=== PATIENT | female | born 1955 | race Caucasian/White ===

== ENCOUNTER 2019-01-24 08:25 | Inpatient (IN) | payer MEDICARE, OTHER ==
[~2019-01-24] VITALS: Ht 165.1 cm; Wt 69.1 kg
[~2019-01-24 08:25] MED LIST: 00186-0370-20 IH; ALBUTEROL0.83 MG/ML IH; COZAAR 50MG50 MG/TAB PO; FOLIC ACID 11 MG/TA1 PO; HCTZ 25MG TAB25 MG PO; ISOPTIN SR180 M1 PO; LEXAPRO20 MG PO; MULTI VITAMINS1 TAB PO; PREDNISONE10 MG PO; PROVENTIL0.09 MG/A1 IH; THEO-24 30300 MG/CAP PO; THIAMINE 1100 MG/TAB PO; XANAX .25M0.25 MG/TA PO
[2019-01-24] MEDS ORDERED: ELIQUIS 5MG PO (08:56)
[2019-01-24] MEDS ORDERED: COZAAR 50MG50 MG/TAB PO (08:58)
[2019-01-24] MEDS ORDERED: PROTONIX 40MG T40 MG PO (09:00)
[2019-01-24] MEDS ORDERED: NATURE'S BLEND100 M2 PO (09:01)
[2019-01-24] MEDS ORDERED: FOLIC ACID0.4 MG PO (09:02)
[2019-01-24] MEDS ORDERED: CARDIZEM CD 24240 MG PO (09:03)
[2019-01-24 09:25] LABS: HEMATOCRIT 38.5 % (37.0-47.0); MEAN CELL VOLUME 94 fl (80.0-100.0); MEAN CORPUSCULAR HEMOGLOBIN 32 pg (27.0-31.0); MEAN CORPUSCULAR HGB CONC 34 g/dl (33.0-37.0); MEAN PLATELET VOLUME 8.8 fl (7.4-10.4); PLATELET COUNT 328 K/mm3 (130-400); REDCELL DISTRIBUTION WIDTH-CV 12.9 % (11.5-14.5)
[2019-01-24 09:27] LABS: PROTHROMBIN TIME 24.1 SECONDS (9.7-12.8)
[2019-01-24 09:34] LABS: ALANINE AMINOTRANSFERASE < 6 U/L (9-52); ALBUMIN 3.7 gm/dL (3.5-5.0); ALKALINE PHOSPHATASE 104 U/L (50-136); ANION GAP 11 mmol/L (7-16); AST,SGOT 23 U/L (15-37); BILIRUBIN,TOTAL 0.7 mg/dL (0.0-1.0); BLOOD UREA NITROGEN 7 mg/dL (7-17); CALCIUM 9.5 mg/dL (8.4-10.2); CARBON DIOXIDE 29 mmol/L (22-30); CHLORIDE 96 mmol/L (98-107); GLUCOSE 132 mg/dL (74-106); MAGNESIUM 1.7 mg/dL (1.6-2.3); POTASSIUM 4.1 mmol/L (3.4-5.0); SODIUM 136 mmol/L (137-145); TOTAL PROTEIN 7.7 gm/dL (6.4-8.2)
--- NOTE | 2019-01-24 10:00 | NUR ---
Admission assessment completed, alert/oriented, vital signs stable, denies pain or discomfort, health history obtained from patient and her , I have reviewed and reconciled her home meds / pharmacy/ allergies, heart RRR/distal pulses are palpable, placed on tele, EKG done / in sinus rythm at this time, notified Cardiology of her arrival
[2019-01-24 10:14] VITALS: BP 98/58; PULSE 101; TEMP 97.9
[2019-01-24 12:35] VITALS: BP 102/56; PULSE 89
[2019-01-24 16:28] VITALS: BP 99/55; PULSE 88; TEMP 98.7
[2019-01-24 20:07] VITALS: BP 106/51; PULSE 93; TEMP 98.7
--- NOTE | 2019-01-24 20:35 | NUR ---
Patient assessed at this time. Alert and oriented x 4, and able to make needs known. Denies having pain and discomfort. Peripheral IV to left forearm flushed. Site is without redness, warmth, swelling, and pain. Denies having SOB and dyspnea. LS CTA. Respirations even and unlabored. Denies having chest pain and discomfort. HRR. Telemetry in place. BSAx4. Abdomen soft and non-tender. No edema noted. Resting in bed watching TV at this time. Denies having any questions, needs or concerns. Call light is within reach.
[2019-01-24 23:59] VITALS: BP 106/62; PULSE 82; TEMP 98
[2019-01-25 03:32] VITALS: BP 106/56; PULSE 82; TEMP 97.9
--- NOTE | 2019-01-25 04:46 | NUR ---
Patient has been resting in bed with eyes closed most of the night. Denies having pain and discomfort. Voices no questions, needs, or concerns. Call light is within reach.
[2019-01-25 07:06] LABS: BASO # 0.1 (0.0-0.2); BASO % 0.6 % (0.0-2.0); EOS # 0.2 (0.0-0.7); EOS % 2.4 % (0-4.0); GRAN # 5.5 (1.4-6.5); GRAN % 68.2 % (42.2-75.2); HEMOGLOBIN 11.5 g/dl (12.5-16.0); LYMPH # 1.5 (1.2-3.4); MEAN CELL VOLUME 92 fl (80.0-100.0); MEAN CORPUSCULAR HEMOGLOBIN 31 pg (27.0-31.0); MEAN CORPUSCULAR HGB CONC 34 g/dl (33.0-37.0); MONO # 0.8 (0.1-0.6); MONO % 9.3 % (1.7-9.3); PLATELET COUNT 298 K/mm3 (130-400); RED BLOOD COUNT 3.67 M/mm3 (4.10-5.30)
--- NOTE | 2019-01-25 07:11 | NUR ---
Report given to day shift nurse.
[2019-01-25 07:30] VITALS: BP 106/63; PULSE 87; TEMP 97.4
[2019-01-25 07:30] LABS: CREATININE, serum 0.44 (0.52-1.25); MAGNESIUM 1.8 mg/dL (1.6-2.3)
[2019-01-25 07:46] LABS: HEMATOCRIT 33.9 % (37.0-47.0)
--- NOTE | 2019-01-25 08:50 | NUR ---
Assessment completed, alert/oriented, vital signs stable, denies any chest pain/ discomfort/ palpitations, EKG an tele show SR rated 80's-100 and a.m. Amidodraone dose given and we are on day #2, she denies any resp.difficulty or SOA/ lungs CTA, she is sititng up ordering breakfast and denies other needs, will continue to monitor
--- NOTE | 2019-01-25 10:30 | NUR ---
Initial visit; Patient thanked Director Data Processing for stopping and was receptive to Director Data Processing keeping her in Director Data Processing's prayers.
[2019-01-25 11:40] VITALS: BP 116/57; PULSE 81; TEMP 98.3
--- NOTE | 2019-01-25 15:30 | NUR ---
SW met with patient to discuss discharge planning. Patient lives independently at home with her . Patient's PCP was Dr Elliott but she sees another doctor in the same office. Patient is unsure of the doctors name. Patient obtains prescriptions from [facility]. Patient does not use any DME or home health services. Patient does have a DPOA-HC and SW requested a copy for the chart. SW does not anticipate any discharge needs.
[2019-01-25 16:06] VITALS: BP 100/56; PULSE 81; TEMP 98.1
[2019-01-25 18:58] VITALS: BP 104/54; PULSE 86; TEMP 98.5
--- NOTE | 2019-01-25 19:40 | NUR ---
Patient assessed at this time. Alert and oriented x 4, and able to make needs known. Denies having pain and discomfort. Peripheral IV to left forearm flushed. Site is without redness, warmth, swelling, and pain. LS CTA. Respirations even and unlabored. Denies SOB and dyspnea. Telemetry on. Denies chest pain, discomfort, and palpitations. Patient is normal sinus rhythm. BSAx4. Abdomen soft and non-tender. No edema. Voices no questions, needs, or concerns at this time. In recliner reading newspaper at this time. Call light is within reach.
[2019-01-25 23:14] VITALS: BP 123/56; PULSE 83; TEMP 98.1
[2019-01-26 03:10] VITALS: BP 110/69; PULSE 85; TEMP 98
--- NOTE | 2019-01-26 05:27 | NUR ---
Patient has denied pain, questions, needs, and concerns throughout this shift. Telemetry is in place, normal sinus.
--- NOTE | 2019-01-26 07:00 | NUR ---
Report received from LUNA Murrell. Pt in bed resting with no needs, will continue to monitor.
--- NOTE | 2019-01-26 07:08 | NUR ---
Report given to day shift nurse.
[2019-01-26 07:13] LABS: HEMOGLOBIN 11.7 g/dl (12.5-16.0); MEAN CELL VOLUME 95 fl (80.0-100.0); MEAN CORPUSCULAR HEMOGLOBIN 31 pg (27.0-31.0); MEAN CORPUSCULAR HGB CONC 33 g/dl (33.0-37.0); MEAN PLATELET VOLUME 9.2 fl (7.4-10.4); PLATELET COUNT 321 K/mm3 (130-400); RED BLOOD COUNT 3.79 M/mm3 (4.10-5.30); REDCELL DISTRIBUTION WIDTH-CV 13.2 % (11.5-14.5)
[2019-01-26 07:21] VITALS: BP 111/61; PULSE 85; TEMP 98.1
[2019-01-26 07:21] LABS: HEMATOCRIT 35.8 % (37.0-47.0)
[2019-01-26 07:24] LABS: CALCIUM 9.1 mg/dL (8.4-10.2); CREATININE, serum 0.54 (0.52-1.25); MAGNESIUM 1.9 mg/dL (1.6-2.3); POTASSIUM 3.8 mmol/L (3.4-5.0)
[2019-01-26 07:51] LABS: BAND 6 % (0-10); BASOPHIL 1 % (0-2); EOSINOPHIL 3 % (0-4); LYMPHOCYTE 22 % (20.0-51.0); NEUTROPHILS 59 % (42.0-75.2); PLATELET ESTIMATE NORMAL (NORMAL)
--- NOTE | 2019-01-26 08:26 | NUR ---
Assessment charted. pt has no pain, VSS, HR NSR. INT to LFA. Will be due for change today, pt agreeable. Resting quietly after showering, will continue to monitor.
[2019-01-26 11:08] VITALS: BP 100/52; PULSE 85; TEMP 98.1
[2019-01-26 16:53] VITALS: BP 106/64; PULSE 85; TEMP 98.6
--- NOTE | 2019-01-26 18:04 | NUR ---
Pt had uneventful day. ambulating as needed around floor. has had no pain or incidence of Afib. Will give bedside shift report to nightshift nurse who will resume care.
[2019-01-26 19:48] VITALS: BP 112/56; PULSE 83; TEMP 98.6
--- NOTE | 2019-01-26 21:23 | NUR ---
Resting in bed. Assessment complete. Lungs clear. Heart sounds normal. Bowels active x4. Pulses strong throughout. No edema noted. Denies pain at this time. Denies needs. Call light in reach.
[2019-01-26 23:21] VITALS: BP 113/58; PULSE 88; TEMP 98.1
--- NOTE | 2019-01-27 02:54 | NUR ---
Resting in bed. Denies needs. Call light in reach.
[2019-01-27 03:42] VITALS: BP 107/57; PULSE 84; TEMP 98
--- NOTE | 2019-01-27 05:35 | NUR ---
Patient had uneventful night. Resting in bed this AM.
--- NOTE | 2019-01-27 06:55 | NUR ---
Report given to LUNA Payne
[2019-01-27 07:26] LABS: BASO # 0.1 (0.0-0.2); BASO % 0.7 % (0.0-2.0); EOS # 0.2 (0.0-0.7); EOS % 2.2 % (0-4.0); GRAN # 5.1 (1.4-6.5); HEMOGLOBIN 11.3 g/dl (12.5-16.0); LYMPH # 1.3 (1.2-3.4); LYMPH % 18.1 % (20.0-51.0); MEAN CELL VOLUME 93 fl (80.0-100.0); MEAN CORPUSCULAR HEMOGLOBIN 31 pg (27.0-31.0); MEAN CORPUSCULAR HGB CONC 33 g/dl (33.0-37.0); MEAN PLATELET VOLUME 9.2 fl (7.4-10.4); MONO # 0.7 (0.1-0.6); MONO % 9.6 % (1.7-9.3); PLATELET COUNT 290 K/mm3 (130-400); RED BLOOD COUNT 3.64 M/mm3 (4.10-5.30); REDCELL DISTRIBUTION WIDTH-CV 13.1 % (11.5-14.5)
[2019-01-27 07:40] LABS: CREATININE, serum 0.5 (0.52-1.25); MAGNESIUM 1.9 mg/dL (1.6-2.3); POTASSIUM 3.8 mmol/L (3.4-5.0)
[2019-01-27 08:25] VITALS: BP 111/56; PULSE 82; TEMP 98
--- NOTE | 2019-01-27 09:29 | NUR ---
Assessment completed, alert/oriented, vital signs stable, denies pain or discomfort, heart RRR/ sinus rythm on tele and EKG, day #4 of Amiodarone initiation, she is sitting up eating breakfast, denies other needs
[2019-01-27 11:50] VITALS: BP 102/53; PULSE 79; TEMP 98.4
[2019-01-27 15:21] VITALS: BP 110/53; PULSE 87; TEMP 97.8
[2019-01-27 18:58] VITALS: BP 113/60; PULSE 80; TEMP 98
--- NOTE | 2019-01-27 20:22 | NUR ---
Resting in recliner. Assessment complete. Right lower lobe crackles otherwise clear. Heart sounds normal. Bowels active x4. Pulses strong throughout. No edema noted. INT right forearm without complications. Denies pain. Denies needs at this time. Call light in reach.
[2019-01-27 23:33] VITALS: BP 111/64; PULSE 81; TEMP 98.5
--- NOTE | 2019-01-28 01:00 | NUR ---
Resting in bed. Call light in reach.
[2019-01-28 03:59] VITALS: BP 110/60; PULSE 82; TEMP 98.3
--- NOTE | 2019-01-28 04:19 | NUR ---
Resting in bed. Call light in reach.
--- NOTE | 2019-01-28 06:03 | NUR ---
Patient had uneventful night. Resting in bed this AM. Denies needs. Call light in reach.
[2019-01-28 06:58] LABS: BASO # 0.1 (0.0-0.2); EOS # 0.2 (0.0-0.7); EOS % 2.4 % (0-4.0); GRAN # 4.6 (1.4-6.5); GRAN % 68.5 % (42.2-75.2); HEMOGLOBIN 11.1 g/dl (12.5-16.0); LYMPH # 1.3 (1.2-3.4); LYMPH % 19.5 % (20.0-51.0); MEAN CELL VOLUME 93 fl (80.0-100.0); MEAN CORPUSCULAR HEMOGLOBIN 31 pg (27.0-31.0); MEAN CORPUSCULAR HGB CONC 33 g/dl (33.0-37.0); MEAN PLATELET VOLUME 9.1 fl (7.4-10.4); MONO # 0.6 (0.1-0.6); MONO % 8.3 % (1.7-9.3); PLATELET COUNT 292 K/mm3 (130-400); RED BLOOD COUNT 3.59 M/mm3 (4.10-5.30); REDCELL DISTRIBUTION WIDTH-CV 12.9 % (11.5-14.5)
[2019-01-28 07:06] LABS: HEMATOCRIT 33.5 % (37.0-47.0)
--- NOTE | 2019-01-28 07:09 | NUR ---
Report given to LUNA Prince
[2019-01-28 07:15] LABS: CREATININE, serum 0.51 (0.52-1.25); MAGNESIUM 1.8 mg/dL (1.6-2.3); POTASSIUM 3.9 mmol/L (3.4-5.0)
[2019-01-28 07:42] VITALS: BP 108/56; PULSE 80; TEMP 98.2
--- NOTE | 2019-01-28 08:30 | NUR ---
Pt is awake and A/Ox4, sitting up in recliner. Pt denies pain or discomfort. Heart remains in NSR. Saline lock to right FA is free of complications. Pt denies any other needs.
[2019-01-28] MEDS ORDERED: PACERONE200 MG PO (09:36)
[2019-01-28] MEDS ORDERED: CARDIZEM CD 24240 MG PO (09:37)
[2019-01-28] MEDS ORDERED: ELIQUIS 5MG PO (09:37)
--- NOTE | 2019-01-28 10:14 | NUR ---
Pt was discharged home from hospital. All discharge instructions and paperwork was reviewed with pt who expressed understanding and had no questions. Saline lock removed, catheter tip intact. New prescriptions sent to pharm. Pt awaiting to be escorted out.
--- NOTE | 2019-01-28 11:19 | NUR ---
Patient will discharge home todat 01/28. SW presented IM to patient. She signed and did not want a copy.
--- NOTE | 2019-01-28 11:42 | NUR ---
Pt was escorted out of facility by staff
== END 2019-01-28 11:43 | disposition home or self-care (01) | DRG 310 ==
LOC: MEDICAL 08:25
PROVIDERS: ADMIT Internal Medicine Cardiovascular Disease
DX: I48.0 Paroxysmal atrial fibrillation (principal); J45.909 Unspecified asthma, uncomplicated; F41.9 Anxiety disorder, unspecified; F32.9 Major depressive disorder, single episode, unspecified; I10 Essential (primary) hypertension; F10.10 Alcohol abuse, uncomplicated; F17.210 Nicotine dependence, cigarettes, uncomplicated; Z88.2 Allergy status to sulfonamides; Z79.01 Long term (current) use of anticoagulants

== ENCOUNTER 2019-05-01 18:25 | Emergency (ER) | payer MEDICARE, OTHER ==
[~2019-05-01] VITALS: Ht 165.1 cm; Wt 75.0 kg
[~2019-05-01 18:25] MED LIST changes: +CARDIZEM CD 24240 MG PO; +ELIQUIS 5MG PO; +FOLIC ACID0.4 MG PO; +NATURE'S BLEND100 M2 PO; +PACERONE200 MG PO; +PROTONIX 40MG T40 MG PO
[2019-05-01 18:37] VITALS: TEMP 98.6
[2019-05-01 19:38] LABS: BASO % 0.7 % (0.0-2.0); EOS # 0.1 (0.0-0.7); EOS % 2.6 % (0-4.0); GRAN # 3.8 (1.4-6.5); GRAN % 70.8 % (42.2-75.2); HEMATOCRIT 38.2 % (37.0-47.0); HEMOGLOBIN 13.8 g/dl (12.5-16.0); LYMPH # 0.8 (1.2-3.4); LYMPH % 14.4 % (20.0-51.0); MEAN CELL VOLUME 90 fl (80.0-100.0); MEAN CORPUSCULAR HEMOGLOBIN 33 pg (27.0-31.0); MEAN CORPUSCULAR HGB CONC 36 g/dl (33.0-37.0); MEAN PLATELET VOLUME 9.3 fl (7.4-10.4); MONO # 0.6 (0.1-0.6); MONO % 11.3 % (1.7-9.3); PLATELET COUNT 144 K/mm3 (130-400); RED BLOOD COUNT 4.24 M/mm3 (4.10-5.30)
[2019-05-01 19:47] LABS: ALANINE AMINOTRANSFERASE 40 U/L (9-52); ALBUMIN 4.2 gm/dL (3.5-5.0); ALKALINE PHOSPHATASE 126 U/L (50-136); ANION GAP 10 mmol/L (7-16); AST,SGOT 70 U/L (15-37); BILIRUBIN,TOTAL 0.6 mg/dL (0.0-1.0); BLOOD UREA NITROGEN 10 mg/dL (7-17); CALCIUM 9.2 mg/dL (8.4-10.2); CARBON DIOXIDE 24 mmol/L (22-30); CHLORIDE 94 mmol/L (98-107); CREATININE, serum 0.49 (0.52-1.25); GLUCOSE 97 mg/dL (74-106); SODIUM 128 mmol/L (137-145); TOTAL PROTEIN 7.1 gm/dL (6.4-8.2)
[2019-05-01 19:58] LABS: TROPONIN-I < 0.012 ng/mL (0.000-0.035)
[2019-05-01] MEDS ORDERED: PREDNISONE20 MG PO (20:56)
[2019-05-01 21:15] VITALS: BP 128/60; PULSE 74
== END 2019-05-01 21:15 | disposition home or self-care (01) ==
LOC: COL.ER 18:25
PROVIDERS: Emergency Medicine
DX: J45.901 Unspecified asthma with (acute) exacerbation (principal); E87.1 Hypo-osmolality and hyponatremia; I48.91 Unspecified atrial fibrillation; Z87.891 Personal history of nicotine dependence
CPT/HCPCS: J7512

== ENCOUNTER → 2019-06-03 | Outpatient (CLI) | payer MEDICARE ==
[~2019-06-03] MED LIST changes: +PREDNISONE20 MG PO
== END ==
LOC: COL.RAD 05-31 11:00
DX: J98.6 Disorders of diaphragm (principal); R06.02 Shortness of breath

== ENCOUNTER 2020-02-28 23:27 | Inpatient (IN) | payer MEDICARE ==
[~2020-02-28] VITALS: Ht 167.6 cm; Wt 83.2 kg
[2020-02-29] VITALS (14 sets, daily range): BP systolic 84–135; BP diastolic 35–57; PULSE 70–84; TEMP 97.8–99.4
[2020-02-29] LABS: BASO % 0.7 % (0.0-2.0); EOS % 0.4 % (0-4.0); GRAN # 4.2 (1.4-6.5); GRAN % 75.7 % (42.2-75.2); HEMATOCRIT 37.4 % (37.0-47.0); HEMOGLOBIN 12.9 g/dl (12.5-16.0); LYMPH # 0.9 (1.2-3.4); LYMPH % 15.6 % (20.0-51.0); MEAN CELL VOLUME 102 fl (80.0-100.0); MEAN CORPUSCULAR HEMOGLOBIN 35 pg (27.0-31.0); MEAN CORPUSCULAR HGB CONC 35 g/dl (33.0-37.0); MEAN PLATELET VOLUME 9.4 fl (7.4-10.4); MONO # 0.4 (0.1-0.6); MONO % 7.2 % (1.7-9.3); PLATELET COUNT 195 K/mm3 (130-400); RED BLOOD COUNT 3.68 M/mm3 (4.10-5.30); REDCELL DISTRIBUTION WIDTH-CV 14.6 % (11.5-14.5)
[2020-02-29 00:07] LABS: INR 1.3 (0.8-3.0); PROTHROMBIN TIME 14.8 SECONDS (9.7-12.8)
[2020-02-29 00:09] LABS: PARTIAL THROMBOPLASTIN TIME 35.9 SECONDS (26.0-37.0)
[2020-02-29 00:10] LABS: ALBUMIN 4.2 gm/dL (3.5-5.0); BILIRUBIN,TOTAL 0.7 mg/dL (0.0-1.0); CALCIUM 8.4 mg/dL (8.4-10.2); CREATININE, serum 0.47 (0.52-1.25); POTASSIUM 4.5 mmol/L (3.4-5.0); TOTAL PROTEIN 7.4 gm/dL (6.4-8.2)
[2020-02-29] MEDS ORDERED: DOXYCYCLINE 10100 MG PO (00:24)
[2020-02-29] MEDS ORDERED: CORDARONE200 MG/TAB PO (02:31)
[2020-02-29] MEDS ORDERED: 00186-0370-20 IH (02:36)
--- NOTE | 2020-02-29 03:51 | NUR ---
Patient arrived to the unit via ED bed. Assisted patient to our surgical bed via slide board and 3 staff. Patient verbalizes pain at 8/10 to right hip. PRN Dilaudid given. Not effective. Dr. Phillips notified and ordered Morphine 1mg q4hr IV PRN. Patient stated her pain is now a 6/10 and "tolerable". Covarrubias catheter present and draining clear, yellow urine. IV to right wrist noted. Flushes with no issues. Ice to right hip. Patient awake and watching television at this time. 5 page, Med Rec, and infectious disease screening completed. Patient remains NPO. Will continue to monitor.
--- NOTE | 2020-02-29 06:56 | NUR ---
Lying in bed in supine position with eyes open. Rates pain in right knee 10/10 and describes as sharp throbbing pain that is constant. Immobilizer in place. Patient would like more pain medication.
--- NOTE | 2020-02-29 07:05 | NUR ---
Morphine administered as prescribed.
--- NOTE | 2020-02-29 08:20 | NUR ---
Reviewed consent for procedure tomorrow with the patient. Questions answered. Patient verbalizes understanding and signs consent. Consent placed on chart at this time.
--- NOTE | 2020-02-29 08:34 | NUR ---
Spoke with MERE Guzman, regarding patient pain, plan for surgery tomorrow, and diet. Orders placed. Patient rating pain 8/10 in right leg. Administer [place] as prescribed. Patient provided with water and explained that a breakfast tray will be coming for her to eat. Denies additional needs at this time.
--- NOTE | 2020-02-29 09:14 | NUR ---
Continues to rate pain 7/10 in right leg and patient would like additional Boz[place] as it is prescribed. Administered at this time. Patient lying in supine position in bed. Denies additional needs at this time.
--- NOTE | 2020-02-29 10:12 | NUR ---
Engineering Illustrator met with patient to discuss discharge planning. Patient lives in [place] with her , Moises (ph#[phone]) [address] sees Dr. Collier for primary care. Patient obtains medications from [facility] with no difficulties. Patient uses a four wheeled walker and reports she gets around fairly well. Patient reports she is normally independent with ALDS. Patient states her , Moises is her DPOA-HC although SW did not locate any Advance Directives in EMR. Per notes, plan is for patient to have surgery tomorrow. Patient states she would like to return home at discharge but states that she may be open to post acute rehab if needed. SW reviewed post acute rehab options including SNF, Inpatient Rehab, and [facility]. Patient states she will consider these options. Patient states if she does return home, she will need a hospital bed. SW will continue to follow.
--- NOTE | 2020-02-29 10:57 | NUR ---
Ice Handler attended clinical rounds with the team. Patient shared that she fell last night after her knee gave out. SW will continue to follow.
--- NOTE | 2020-02-29 11:11 | NUR ---
Rating pain 6/10 in right leg and would like pain medication. Dilaudid administered as prescribed.
--- NOTE | 2020-02-29 11:22 | NUR ---
First visit from the planning advisor. No needs right now.
--- NOTE | 2020-02-29 12:04 | NUR ---
Lying in bed with eyes open, rating pain in right leg 4/10. Patient updated that echo and chest xray would be performed. Patient denies additional needs at this time.
[2020-02-29 12:15] LABS: COLLECTION METHOD CLEAN CATCH
[2020-02-29 12:26] LABS: PH 6 (5-8); SQUAMOUS EPITHELIAL None Seen /hpf; URINE APPEARANCE Clear; URINE BACTERIA Occasional /hpf; URINE BILIRUBIN Negative (NEGATIVE); URINE BLOOD 2+ (NEGATIVE); URINE COLOR Yellow; URINE GLUCOSE Negative (NEGATIVE); URINE KETONE Negative (NEGATIVE); URINE LEUKOCYTE ESTERASE 2+ (NEGATIVE); URINE NITRATE Negative (NEGATIVE); URINE PROTEIN(semi-quant) Negative (NEGATIVE); URINE RBC 0-2 /hpf; URINE UROBILINOGEN Negative (NEGATIVE); URINE WBC 20-50 /hpf
--- NOTE | 2020-02-29 14:01 | NUR ---
Having increasing pain in right leg and would like pain medication. Will administer Morphine as prescribed. Patient lying in bed with eyes open. Immobilizer and ice to right leg.
--- NOTE | 2020-02-29 14:34 | NUR ---
Lying in bed with eyes closed. Respirations even and unlabored. No signs or symptoms of discomfort noted at this time.
--- NOTE | 2020-02-29 16:03 | NUR ---
Pain in right leg at 5/10, feels like it is increasing, and would like pain medication. Administer [place] as prescribed. Patient lying in bed watching TV. Immobilizer in place, ice to right femur. Denies additional needs at this time,
[2020-02-29 16:25] LABS: CALCIUM 8.3 mg/dL (8.4-10.2); CREATININE, serum 0.49 (0.52-1.25); POTASSIUM 4.1 mmol/L (3.4-5.0)
--- NOTE | 2020-02-29 21:00 | NUR ---
Pt assessment completed and documented. Pt A&Ox3. Pt resting in bed watching television. PRN morphine administered per orders for 8/10 right knee pain. States pain is a throbbing pain and increases with any type of movement. Immobilizer in place. IVF infusing per orders to right wrist IV without complications. Pt denies any other needs. Call light within reach. Bed alarm on.
[2020-03-01] VITALS (18 sets, daily range): BP systolic 100–139; BP diastolic 45–83; PULSE 68–78; TEMP 97.5–98.2
[2020-03-01 06:17] LABS: BASO % 0.2 % (0.0-2.0); GRAN # 5.4 (1.4-6.5); GRAN % 82.8 % (42.2-75.2); LYMPH # 0.5 (1.2-3.4); MEAN CELL VOLUME 104 fl (80.0-100.0); MEAN CORPUSCULAR HGB CONC 34 g/dl (33.0-37.0); MEAN PLATELET VOLUME 9.9 fl (7.4-10.4); MONO # 0.6 (0.1-0.6); MONO % 9.8 % (1.7-9.3); PLATELET COUNT 156 K/mm3 (130-400); RED BLOOD COUNT 3.03 M/mm3 (4.10-5.30); REDCELL DISTRIBUTION WIDTH-CV 14.9 % (11.5-14.5)
[2020-03-01 06:26] LABS: HEMATOCRIT 31.6 % (37.0-47.0); HEMOGLOBIN 10.8 g/dl (12.5-16.0); MEAN CORPUSCULAR HEMOGLOBIN 36 pg (27.0-31.0)
[2020-03-01 06:29] LABS: CALCIUM 8.3 mg/dL (8.4-10.2); CREATININE, serum 0.42 (0.52-1.25); MAGNESIUM 2.1 mg/dL (1.6-2.3); POTASSIUM 3.3 mmol/L (3.4-5.0)
--- NOTE | 2020-03-01 06:56 | NUR ---
Lying in bed with eyes open. Pain minimal at this time. Patient explains that she feels that her catheter is leaking. Catheter draining clear yellow urine. Chux pad noted to have some urine on the pad. Explain that she could be having bladder spasms that cause the urine to leak around the catheter. Chux pad changed at this time. Patient tolerates rolling not well. Bottom is red. Explain that we need to start rolling her on her sides to get her off her bottom, patient requests to wait until after her surgery. Patient denies any additional needs at this time.
--- NOTE | 2020-03-01 10:15 | NUR ---
Patient to surgery via bed at this time.
--- NOTE | 2020-03-01 13:22 | NUR ---
Patient to room via bed from PACU. Patient is alert and oriented but drowsy. Continues to have some cramping pains in right leg. Immobilizer in place to right leg, aquacel dressing under immobilizer. Patient able to move toes to bilat feet, lifts left leg, says that she does not want to lift the right leg. Cap refill to right toes <3 seconds, skin pink, pulses 2+. Patient denies needs at this time,.
--- NOTE | 2020-03-01 16:51 | NUR ---
Music Specialist followed up with patient about discharge plan. SW spoke with patient about sending other referrals as a second preference and patient would like SW to speak with her about other referrals. SW contacted patient's , Moises who confirmed their first preference would be [facility] but is open to other referrals being sent. JAN reviewed SNF and swing bed options. Moises advised he would like referrals sent to [facility] and [facility] and did not prefer one over the other. JAN contacted Johanna at [facility] and Cheikh at [facility] then faxed referrals. JAN contacted MERE Kasper about ordering COVID swab. JAN will continue to follow.
--- NOTE | 2020-03-01 20:23 | NUR ---
Resting in bed. Assessment complete. Bases bilaterally diminished otherwise clear. Heart sounds normal. Bowels active x4. Pulses present throughout. IV right wrist infusing without complications. Denies pain at this time. Denies needs. Call light in reach.
--- NOTE | 2020-03-02 00:09 | NUR ---
Reported 5/10 right leg pain and requested tylenol. Provided to patient. Denies other needs. call light in reach.
--- NOTE | 2020-03-02 01:45 | NUR ---
Resting in bed asleep. Call light in reach.
[2020-03-02 04:00] VITALS: BP 113/50; PULSE 67; TEMP 98.1
[2020-03-02 06:00] LABS: CALCIUM 8.3 mg/dL (8.4-10.2); CREATININE, serum 0.42 (0.52-1.25)
[2020-03-02 06:10] LABS: GRAN % 89.8 % (42.2-75.2); HEMATOCRIT 29.2 % (37.0-47.0); HEMOGLOBIN 9.9 g/dl (12.5-16.0); LYMPH # 0.2 (1.2-3.4); LYMPH % 2.6 % (20.0-51.0); MEAN CELL VOLUME 105 fl (80.0-100.0); MEAN CORPUSCULAR HEMOGLOBIN 36 pg (27.0-31.0); MEAN CORPUSCULAR HGB CONC 34 g/dl (33.0-37.0); MEAN PLATELET VOLUME 10.3 fl (7.4-10.4); MONO # 0.6 (0.1-0.6); MONO % 7.2 % (1.7-9.3); PLATELET COUNT 149 K/mm3 (130-400); RED BLOOD COUNT 2.77 M/mm3 (4.10-5.30); REDCELL DISTRIBUTION WIDTH-CV 14.7 % (11.5-14.5)
--- NOTE | 2020-03-02 06:20 | NUR ---
Patient required x1 dose of tylenol for pain control throughout night. Otherwise uneventful night. Resting in bed this AM. Call light in reach.
--- NOTE | 2020-03-02 06:57 | NUR ---
Report given to LUNA Carballo
[2020-03-02 07:38] VITALS: BP 123/53; PULSE 84; TEMP 98.5
--- NOTE | 2020-03-02 08:00 | NUR ---
Patient in bed resting. Alert and oriented x 3. Assessment complete. Brace to RLE, ICE to RLE. Dewayne hose and SCD to LLE. Fluids infusing per orders to RW IV. Covarrubias to dependent drainage with clear yellow urine in bag. Denies pain at this time. Denies further needs at this time.
--- NOTE | 2020-03-02 09:25 | NUR ---
Patient up to chirag with Pt.
--- NOTE | 2020-03-02 10:04 | NUR ---
Patient sitting up in recliner, Denies pain after working with therapy. Would like bed bath later today. Denies further needs at this time.
--- NOTE | 2020-03-02 10:09 | NUR ---
Johanna from [facility] reports they can accept the patient. Rubi, [facility] Director states they can accept the patient. The patient and 's first choice is [facility]. Credit Analyst contacted the patient's , Don to provide an update. Will continue to monitor.
[2020-03-02 11:50] VITALS: BP 116/49; PULSE 76; TEMP 98
--- NOTE | 2020-03-02 15:42 | NUR ---
Patient back to bed. Denies pain at this time. Denies further needs at this time.
[2020-03-02 16:31] VITALS: BP 116/51; PULSE 82; TEMP 98.7
--- NOTE | 2020-03-02 18:32 | NUR ---
Patient has done well throughout the day, minimal needs. Denies pain throughout the day, Covarrubias discontinued per orders. Denies further needs at this time. Will report off to electrical mechanic.
[2020-03-02 19:33] VITALS: BP 100/48; PULSE 74; TEMP 98.5
[2020-03-02 20:25] VITALS: BP 119/42
--- NOTE | 2020-03-02 20:40 | NUR ---
Resting in bed. Assessment complete. Lungs clear. Heart sounds normal. Bowels active x4. Pulses present throughout. No edema noted. INT right wrist without complications. Denies needs. Denies pain. Call light in reach.
--- NOTE | 2020-03-02 22:30 | NUR ---
Patient urinated approx 100 ml into bedpan. Denies needs. Call light in reach.
[2020-03-03 00:32] VITALS: BP 107/47; PULSE 78; TEMP 97.7
--- NOTE | 2020-03-03 00:36 | NUR ---
Reports 3/10 right leg pain. Provided with PRN tylenol at this time
[2020-03-03 04:33] VITALS: BP 114/52; PULSE 72; TEMP 98
--- NOTE | 2020-03-03 06:10 | NUR ---
Patient given x1 dose of tylenol during night for pain control. Patient used bedpan and had episodes of incontinence during night. This AM patient used bedpan and refused to allow staff to change bedsheets until later once patient gets up. Clean pad placed under patient at this time. Otherwise uneventful night. Resting in bed this Am. Will pass on to next shift needs linens changed once out of bed.
--- NOTE | 2020-03-03 07:02 | NUR ---
Report given to LUNA Carballo
--- NOTE | 2020-03-03 08:00 | NUR ---
Patient in bed resting. Alert and oriented x 3. Assessment complete. Denies pain at this time. RLQ with brace. Denies further needs at this time.
[2020-03-03 08:06] LABS: BASO % 0.1 % (0.0-2.0); GRAN # 7.3 (1.4-6.5); GRAN % 84.3 % (42.2-75.2); HEMOGLOBIN 10.1 g/dl (12.5-16.0); LYMPH # 0.5 (1.2-3.4); LYMPH % 5.9 % (20.0-51.0); MEAN CELL VOLUME 107 fl (80.0-100.0); MEAN CORPUSCULAR HEMOGLOBIN 36 pg (27.0-31.0); MEAN CORPUSCULAR HGB CONC 33 g/dl (33.0-37.0); MEAN PLATELET VOLUME 10.4 fl (7.4-10.4); MONO # 0.8 (0.1-0.6); MONO % 9.4 % (1.7-9.3); PLATELET COUNT 160 K/mm3 (130-400); RED BLOOD COUNT 2.84 M/mm3 (4.10-5.30); REDCELL DISTRIBUTION WIDTH-CV 15.1 % (11.5-14.5)
[2020-03-03 08:09] VITALS: BP 135/56; PULSE 79; TEMP 98.2
[2020-03-03 08:10] LABS: CALCIUM 8.7 mg/dL (8.4-10.2); CREATININE, serum 0.46 (0.52-1.25); POTASSIUM 3.7 mmol/L (3.4-5.0)
[2020-03-03 08:15] LABS: HEMATOCRIT 30.4 % (37.0-47.0)
--- NOTE | 2020-03-03 09:54 | NUR ---
JAN was informed by nurse Jackson that patient would be transfering to [facility] some time today. SW called Don to provide an update on transition. SW will continue to follow.
--- NOTE | 2020-03-03 10:45 | NUR ---
Educated patient on potassium protocol. Sitting up in recliner, no further needs at this time.
[2020-03-03] MEDS ORDERED: NORCO 325 MG-51 TAB PO (11:28)
[2020-03-03] MEDS ORDERED: OMNICEF 300MG300 MG PO (11:28)
[2020-03-03] MEDS ORDERED: ULTRAM 50MG TAB50 MG PO (11:28)
[2020-03-03] MEDS ORDERED: TYLENOL 325MG325 MG PO (11:28)
[2020-03-03 16:36] VITALS: BP 142/54; PULSE 94; TEMP 98.8
--- NOTE | 2020-03-03 17:33 | NUR ---
Patient transfering to [facility] room 340 by bed. Bed bath provided today, patient voluntarily incontinent of urine. Eduated patient on calling when needing to void throughout the day. No further needs at this time.
[2020-03-03] MEDS ORDERED: PERFOROMIS20 MCG/2 M IH (20:15)
[2020-03-03] MEDS ORDERED: PULMICORT0.5 MG/2 M IH (20:16)
[2020-03-03] MEDS ORDERED: IPRATROPIUM BROM3 M1 IH ×2 (20:18→20:20)
== END 2020-03-03 17:00 | DRG 481 ==
LOC: COL.ER 23:27 → SURG 02-29 00:58
PROVIDERS: Emergency Medicine; Internal Medicine; Orthopaedic Surgery; Physician Assistant; ADMIT Student in an Organized Health Care Education/Training Program
PROC: 0QSB04Z Reposition Right Lower Femur with Internal Fixation Device, Open Approach (ICD-10-PCS; principal; 2020-03-01 10:45)
DX: S72.451A Displaced supracondylar fracture without intracondylar extension of lower end of right femur, initial encounter for closed fracture (principal); E87.1 Hypo-osmolality and hyponatremia; D62 Acute posthemorrhagic anemia; N39.0 Urinary tract infection, site not specified; I48.91 Unspecified atrial fibrillation; I10 Essential (primary) hypertension; F41.9 Anxiety disorder, unspecified; F10.10 Alcohol abuse, uncomplicated; F32.9 Major depressive disorder, single episode, unspecified; J44.9 Chronic obstructive pulmonary disease, unspecified; Z79.01 Long term (current) use of anticoagulants; Z87.891 Personal history of nicotine dependence; Z88.2 Allergy status to sulfonamides
CPT/HCPCS: 99222-AI; 99232-AI; 99239; A9284; C1713; C1776; J0690; J0696; J1100; J1170; J2250; J2270; J2405; J2704; J3010; J3480; J7030; J7512

== ENCOUNTER 2020-03-03 16:19 | Inpatient (IN) | payer MEDICARE ==
[~2020-03-03] VITALS: Ht 167.6 cm; Wt 76.0 kg
[~2020-03-03 16:19] MED LIST changes: +CORDARONE200 MG/TAB PO; +DOXYCYCLINE 10100 MG PO; +NORCO 325 MG-51 TAB PO; +OMNICEF 300MG300 MG PO; +TYLENOL 325MG325 MG PO; +ULTRAM 50MG TAB50 MG PO
--- NOTE | 2020-03-03 17:00 | NUR ---
Patient oriented to room, notified Dr. Cadena of patient transfer. Denies further needs at this time.
--- NOTE | 2020-03-03 18:36 | NUR ---
Patient doing well this afternoon. Minimal needs. Will report off to operations supervisor 2nd shift.
--- NOTE | 2020-03-03 19:00 | NUR ---
PT RESTING IN BED. HERE VISITING. REVIEWED [facility] ROUTINE AND SAFETY PRECAUTIONS. BOTH VERBALIZED UNDERSTANDING. ASSESSMENT COMPLETED. PT DENIES NEED FOR PAIN MEDICATION AT THIS TIME. INT TO RT HAND DC'D. GILMAR HOSE OFF. SCD'S ON. PT WITH UTI SECONDARY TO INCONTINENCE. WEARS DIAPER. INCONT AT THIS TIME. CHANGED. SEE SKIN ASSESSMENT. FEET ELEVATED ON PILLOWS. ICE PACK TO RT THIGH. CALL LIGHT IN REACH. BED ALARM SET.
[2020-03-03 20:00] VITALS: BP 142/54; PULSE 94; TEMP 98.8
[2020-03-03] MEDS ORDERED: PERFOROMIS20 MCG/2 M IH (20:15)
[2020-03-03] MEDS ORDERED: PULMICORT0.5 MG/2 M IH (20:16)
[2020-03-03] MEDS ORDERED: IPRATROPIUM BROM3 M1 IH ×2 (20:18→20:20)
[2020-03-04 05:15] VITALS: BP 133/55; PULSE 75; TEMP 97.6
--- NOTE | 2020-03-04 10:38 | NUR ---
PATIENT RESTING IN BED AT BEDSIDE SHIFT REPORT. PATIENT DENIED PAIN AT THAT TIME. WAS GIVEN PRN TYLENOL AT 0900 AND MOVED TO CHAIR AT 0930. PATIENT TOLERATED WELL. HEELS ARE FLOATING AND PATIENT'S BRIEF WAS CHANGED AT THIS TIME WELL A BED LINEN CHANGE.
--- NOTE | 2020-03-04 11:55 | NUR ---
PATIENT'S HOME MEDICATIONS WERE BROUGHT UP FROM PHARMACY AND PLACED IN MED ROOM. WILL TAKE THEM HOME WHEN HE COMES TODAY. AN EXTERNAL CATHETER WAS PLACED AT 11:[address] HOLT FOR INCONTINENCE.
--- NOTE | 2020-03-04 15:08 | NUR ---
SW met with patient at her bedside to discuss discharge planning. Patient was just assigned to [facility]. Patient resides in [facility] with her Lisa [phone] as care support and EMR. Patient indicated that she was independant of ADL's, and that she utilizes a rolling walker and a toliet rise. Patient reported that her PCP is Dr. Collier, and that she has an appointment July. Patient reported that she gets her medications from [facility] in [facility] with no concerns. Patient did discuss HHS with patient, as she wishes to go home. Patient did become teary eyed at the thought of going to a retirement. SW validated patients concerns, and indicated that Sw would continue to follow her care processes. patient seemed to be okay with this.
[2020-03-04 18:10] VITALS: BP 124/52; PULSE 82; TEMP 97.8
--- NOTE | 2020-03-04 18:58 | NUR ---
PATIENT TOLERATING EXTERNAL CATHETER WELL. SOME PRN TYLENOL GIVEN AGAIN THIS AFTERNOON. ABD PADS TO UNDERSIDE OF IMMOBILIZER FOR IRRITAION. PATIENT RESTING IN BED AT BEDSIDE SHIFT REPORT. BED IN LOW, BED ALARM ON, AND CALL LIGHT WITHIN REACH.
--- NOTE | 2020-03-04 21:00 | NUR ---
PT RESTING IN BED. A&OX4. DENIES ANY NEED FOR PAIN MED. PT TAKING QUITE A BIT OF H20 IN. ENC TO SLOW DOWN H20. USING PUREWICK FOR URINARY INCONTINENCE. PT REPORTS URGENCY BUT NO DYSURIA. URINE CLEAR YELLOW. ENC SHIFT WEIGHT OFF BUTTOCKS FOR WOUND HEALING. PLACED SCD TO LT LEG. PILLOW TO FLOAT RT FOOT. CALL LIGHT IN REACH. PT RELATED SHE WANTED TO KEEP SYMBICORT IN BEDSIDE TABLE. AGREED TO KEEP AT COMPUTER KEYBOARD TO DOCUMENT DOSEGES GIVEN. CALL LIGHT IN REACH. BED ALARM SET.
--- NOTE | 2020-03-05 02:17 | NUR ---
PT C/O DISCOMFORT FROM IMMOBILIZER AT DISTAL END. REPOSITIONED IMMOBILIZER. GAVE TYLENOL PER REQUEST. CHANGED PUREWICK. PADS WETS UNDERNEATH PT. COCCYX DRSG REMOVED -WET. ALLOWED TO AIR. PERICARE DONE.
[2020-03-05 05:30] VITALS: BP 130/50; PULSE 70; TEMP 98.9
--- NOTE | 2020-03-05 09:10 | NUR ---
Initial visit; Patient thanked Engineering Programmer for looking in on him and offering God's blessings and for keeping her in Engineering Programmer's prayers.
--- NOTE | 2020-03-05 09:26 | NUR ---
PATIENT RESTING IN BED AT BEDSIDE SHIFT REPORT. EXPRESSED ANXIETY ABOUT UPCOMING THERAPY. TRIED TO ELEVIATE WORRIES AND GOT PRN TYLENOL ON BOARD THIS AM. PATIENT'S BRIEF WAS CHANGED AND WAS HELPED TO GET DRESSED FOR THERAPY.
--- NOTE | 2020-03-05 15:46 | NUR ---
Furniture Finisher Apprentice met with patient to follow up from the weekend. Patient expressed she was relieved she could go to Inpatient Rehab instead of SNF. SW will continue to follow.
[2020-03-05 16:30] VITALS: BP 113/45; PULSE 73; TEMP 98.7
--- NOTE | 2020-03-05 19:12 | NUR ---
PATIENT MANAGING PAIN WELL TODAY. ALLEVYN DRESSING IN PLACE ON [place] TO STAGE II PRESSURE INJURY. PURWICK IN PLACE AND DRAINING WELL. PATIENT C/O TIGHTNESS BUT NO PAIN. IS IN BED AT BEDSIDE SHIFT REPORT. CALL LIGHT WITHIN REACH, BED ALARM ON, BED IN LOW.
[2020-03-06 05:32] VITALS: BP 110/51; PULSE 64; TEMP 98
--- NOTE | 2020-03-06 07:03 | NUR ---
CHANGE OF SHIFT REPORT GIVEN TO DAY SHIFT NURSEDALILA. BED ALARM ON.
--- NOTE | 2020-03-06 08:54 | NUR ---
Assessment completed, alert/oriented, vital signs stable, reports pain is controlled at this time and rates 2/10, Gave ultram for pre-treatent of PT that will start at 0900, heart RRR/ hx of a.fib but regular at this time, distal pulses are palpable, lungs CTA/ no resp.difficulty noted, she has eaten breakfast and has taken a.m. meds, denies other needs at this time
[2020-03-06 16:35] VITALS: BP 117/62; PULSE 74; TEMP 98.3
--- NOTE | 2020-03-06 20:00 | NUR ---
DECREASED ROM/STRENGTH TO RLE D/T R FEMUR ORIF W/KNEE IMMOBILIZER IN PLACE AND R KNEE DISCOMFORT. REPORTS DISCOMFORT IS MORE "STIFFNESS" DISCOMFORT. DENIES NUMBNESS/TINGLING TO EXTREMITIES. BED ALARM ON.
--- NOTE | 2020-03-07 00:34 | NUR ---
PATIENT SLEEPING, DOES NOT WAKE WHEN ROOM IS ENTERED BY STAFF. BREATHING NONLABORED AND EVEN. BED ALARM ON.
[2020-03-07 04:54] VITALS: BP 104/49; PULSE 64; TEMP 97.9
--- NOTE | 2020-03-07 07:26 | NUR ---
CHANGE OF SHIFT REPORT GIVEN TO DAY SHIFT NURSECALISTA. BED ALARM ON.
[2020-03-07 07:49] VITALS: BP 112/47; PULSE 72
[2020-03-07 08:11] LABS: BASO % 0.5 % (0.0-2.0); EOS # 0.2 (0.0-0.7); EOS % 3.1 % (0-4.0); GRAN # 4.5 (1.4-6.5); GRAN % 69.8 % (42.2-75.2); HEMOGLOBIN 10.3 g/dl (12.5-16.0); LYMPH # 0.8 (1.2-3.4); LYMPH % 12.6 % (20.0-51.0); MEAN CELL VOLUME 106 fl (80.0-100.0); MEAN CORPUSCULAR HEMOGLOBIN 36 pg (27.0-31.0); MEAN CORPUSCULAR HGB CONC 34 g/dl (33.0-37.0); MEAN PLATELET VOLUME 9.6 fl (7.4-10.4); MONO # 0.9 (0.1-0.6); MONO % 13.4 % (1.7-9.3); PLATELET COUNT 219 K/mm3 (130-400); RED BLOOD COUNT 2.88 M/mm3 (4.10-5.30); REDCELL DISTRIBUTION WIDTH-CV 14.3 % (11.5-14.5)
[2020-03-07 08:18] LABS: HEMATOCRIT 30.5 % (37.0-47.0)
[2020-03-07 08:30] LABS: CALCIUM 8.7 mg/dL (8.4-10.2); CREATININE, serum 0.48 (0.52-1.25); MAGNESIUM 2.2 mg/dL (1.6-2.3); POTASSIUM 3.7 mmol/L (3.4-5.0)
--- NOTE | 2020-03-07 09:13 | NUR ---
Follow-up visit; Patient thanked Front End Ui Developer for looking in on her this morning and offering God's blessings.
--- NOTE | 2020-03-07 15:06 | NUR ---
Patient resting in bed, call light in reach and bed alarm set. Patient attended all therapies this morning. Given prn pain meds and ice pack to help with right lower extremity pain. Stage II open sore to right buttocks continues to heal. Stage I to Left buttocks is red. Will continue to monitor.
--- NOTE | 2020-03-07 16:45 | NUR ---
Computer Bookkeeper met with patient to review and provide copy of team conference notes. Discharge date is not set at this time and patient will be reevaluated in a week. SW advised that Home Health is being recommended and patient is in agreement. SW reviewed DME needs with patient who states she will need a hospital bed set up at home and would like to look into renting one. SW attempted to contact patient's and left him a message. SW will continue to follow.
[2020-03-07 17:17] VITALS: BP 107/44; PULSE 72; TEMP 98.2
--- NOTE | 2020-03-07 18:07 | NUR ---
Patient resting in bed, visiting on her phone, call light in reach and bed alarm set. Patient denies any questions at this time. Pain managed with prn pain meds and have been effective. Patient reporting that therapy worked her left leg a lot today, causing more pain. Observed dressing to right leg and there was no drainage observed. Will continue to monitor.
--- NOTE | 2020-03-08 03:21 | NUR ---
PT SLEEPING. NO DISTRESS.
[2020-03-08 05:22] VITALS: BP 97/45; PULSE 65; TEMP 98.3
[2020-03-08 07:17] VITALS: BP 114/49; PULSE 65
--- NOTE | 2020-03-08 07:37 | NUR ---
Patient resting in bed, call light in reach and bed alarm set. Patient tolerating diet well. Reports pain of 5/10 and given Ultram this morning. Patient denies questions at this time.
--- NOTE | 2020-03-08 15:03 | NUR ---
Admission QIM scores were reviewed by the team. Code of 3 chosen for rolling left to right was determined by team discussion to be the most usual performance for this patient during the assessment period. Code of 2 chosen for lying to sitting on side of bed was determined by team discussion to be the most usual performance for this patient during the assessment period. Code of 1 for sit to stand was determined by team discussion to be the most usual performance for this patient during the assessment period. Code of 3 for chair/bed to chair transfers was determined by team discussion to be the most usual performance for this patient during the assessment period.--Rubi Artis,
--- NOTE | 2020-03-08 16:44 | NUR ---
College Administrator spoke with patient's , Moises about discharge planning and DME needs. Moises inquired about hospital bed pricing. JAN advised that Medicare may not cover hospital bed but that SW would follow up. Moises states that he and patient live at [facility] on the 3rd floor. JAN scheduled family meeting for Thursday, 03/14 @ 2590. JAN provided meeting date/time to Rubi [facility] Director. JAN followed up with patient and provided Medicare.gov list of Home Health agencies. JAN contacted Faith awad [facility] who will fax Medicare requirements for hospital bed. Out of pocket cost to rent a hospital bed is $236.25 per month. JAN will continue to follow.
[2020-03-08 17:26] VITALS: BP 117/53; PULSE 71; TEMP 98.1
--- NOTE | 2020-03-08 19:49 | NUR ---
Patient attended all therapies today. Tolerated diet well. OT gave patient some lambs wool to place under her immobilizer to prevent any pressure sores. Dressing is due to be changed on 03/09 then daily after that. OT suggested that patient to the slide transfer during the day to the bedside commode and not use the Periwick until at HS. Night nurse will communicate this to the patient this evening.
--- NOTE | 2020-03-08 21:00 | NUR ---
PT RESTING IN BED. PAIN UNDERCONTROL AT THIS TIME. IMMOBILIZER IN PLACE- SHEEP SKIN PLACED FOR DISCOMFORT OF IMMOBILIZER.- FEELS BETTER. USING PUREWICK EXTERNAL CATH- URINE CLEAR YELLOW..
[2020-03-09 05:45] VITALS: BP 114/54; PULSE 67; TEMP 97.8
--- NOTE | 2020-03-09 07:30 | NUR ---
Patient laying in bed, A&Ox3. VSS. Requested pain medication r/t upcoming therapy. Right knee in immobilizer and elevated on pillow. Periwick to suction, clear yellow urine. Nurse informed patient that we will removed the periwick and the patient needs to use the BSC during the day. Patient verbalized an understanding. No further needs expressed from the patient. Call light within reach. Bed alarm on
--- NOTE | 2020-03-09 10:00 | NUR ---
Dressing changed to right knee. Removed aquacell and placed airstrip. Incision edges well approximated, CDI. Knee immobilzer put back on. Patient tolerated well. Call light within reach
--- NOTE | 2020-03-09 16:14 | NUR ---
Women'S Apparel Salesperson followed up with patient before the weekend. SW spoke with patient again about Home Health and patient states her first preference is [facility] and second preference is [facility]. JAN contacted Monica at [facility] and faxed referral. JAN will continue to follow.
[2020-03-09 17:46] VITALS: BP 114/44; PULSE 69; TEMP 98.3
[2020-03-10 05:48] VITALS: BP 125/44; PULSE 66; TEMP 67.6
--- NOTE | 2020-03-10 05:56 | NUR ---
RESTING QUIETLY/SLEEPING. PT MEDICATED FOR PAIN Q 3-4 HOURS FOR LOWER EXTREMITY DISCOMFORT. NO N/V.
--- NOTE | 2020-03-10 15:38 | NUR ---
Patient resting in bed, call light in reach, bed alarm set and at her side. Patient having pain to Rt leg and given prn pain meds and they have been effective. Patient attended Group Therapy today. Denies questions at this time.
[2020-03-10 16:50] VITALS: BP 124/52; PULSE 65; TEMP 98.3
--- NOTE | 2020-03-10 19:39 | NUR ---
PATIENT RESTING IN BED DURING CHANGE OF SHIFT REPORT FROM DAY SHIFT NURSE. BED ALARM ON.
--- NOTE | 2020-03-10 23:15 | NUR ---
DECREASED ROM/STRENGTH TO RLE DUE TO SURGERY, CONTINUED NON WT BEARING TO RLE WHEN UP OUT OF BED. BED ALARM ON.
[2020-03-11 06:08] VITALS: BP 121/51; PULSE 65; TEMP 98
--- NOTE | 2020-03-11 06:50 | NUR ---
CHANGE OF SHIFT REPORT GIVEN TO DAY SHIFT NURSESUE. BED ALARM ON.
--- NOTE | 2020-03-11 07:13 | NUR ---
PATIENT RESTING IN BED AT BEDSIDE SHIFT REPORT. PATIENT RELAYED SHE WANTS A BATH AND TO SIT UP IN THE CHAIR TODAY STARTING AT 10. BED IN LOW, CALL LIGHT WITHIN REACH, BED ALARM ON.
--- NOTE | 2020-03-11 17:52 | NUR ---
PATIENT WAS A SET UP FOR A BED BATH TODAY, CHANGED CLOTHES AND GOT UP INTO WHEELCHAIR FOR PART OF THE DAY. PATIENT C/O SORENESS MORE THEN PAIN TODAY, WAS ENCOURAGED TO UTILIZE BEDSIDE COMMODE BUT HAS BEEN REFUSING AND USING PERIWICK AND BEDPAN TODAY. PATIENT FLOATING HEELS AND RESTING IN BED EATING DINNER AT THIS TIME.
[2020-03-11 18:24] VITALS: BP 119/51; PULSE 69; TEMP 97.3
--- NOTE | 2020-03-11 19:05 | NUR ---
RECEIVED CHANGE OF SHIFT REPORT FROM DAY SHIFT NURSE, BED ALARM ON. PATIENT REPORT SOME NAUSEA, OFFERED CRACKERS FOR SLIGHT NAUSEA THAT PATIENT DID NOT ANSWER AT TIME OF REPORT.
--- NOTE | 2020-03-11 19:33 | NUR ---
PATIENT REQUESTED AND GIVEN PAIN MEDS, SEE eMAR AND AGREED TO TAKE CRACKERS FOR CONTINUED C/O OF SLIGHT NAUSEA. NO OTHER NEEDS REPORTED. BED ALARM ON.
--- NOTE | 2020-03-11 20:00 | NUR ---
DECREASED ROM/STRENGTH TO RLE D/T SURGERY AND LOCKED KNEE BRACE. PATIENT STATES FEELS COMFORTABLE USING SLIDE BOARD FOR OUT OF BED TRANSFERS, FOR NIGHT TIME USES PURE WICK FOR VOIDING AND BED RAINEY FOR BM, REPORT TURNS FROM SIDE TO SIDE WITH NO PROBLEMS CURRENTLY. DENIES NUMBNESS/TINGLING TO EXTREMITIES AT THIS TIME. REPORTS SOME NAUSEA, DENIES NEED FOR MEDICATION FOR NAUSEA, TOLERATING SIPS OF SPRITE AND AGREEABLE TO FEW SALTINE CRACKERS TO EAT AT THIS TIME. BED ALARM ON.
[2020-03-12 04:51] VITALS: BP 120/48; PULSE 62; TEMP 97.6
--- NOTE | 2020-03-12 07:27 | NUR ---
PROTONIX PILL FELL ONTO FLOOR, RETRIEVED ANOTHER PROTONIX PILL FROM MED STATION TO ADMINISTER TO PATIENT. CHANGE OF SHIFT REPORT GIVEN TO DAY SHIFT NURSESUE. BED ALARM ON.
--- NOTE | 2020-03-12 09:35 | NUR ---
PATIENT SLEEPING IN BED AT BEDSIDE SHIFT REPORT. BED IN LOW, CALL LIGHT WITHIN REACH, BED ALARM ON.
--- NOTE | 2020-03-12 10:29 | NUR ---
Follow-up visit; Patient thanked Steeler for checking in on her and keeping her in Steeler's thoughts and prayers.
--- NOTE | 2020-03-12 15:32 | NUR ---
Monica, at [facility], reports that they are able to accept the patient for services. SW to inform the patient and her .
[2020-03-12 15:38] VITALS: BP 120/52; PULSE 67; TEMP 98.1
--- NOTE | 2020-03-12 17:47 | NUR ---
PATIENT RESTING IN BED, PATIENT CONTINUES TO STATE SHE DOESN'T HAVE MUCH OF AN APPETITE AND DOESN'T EAT MUCH FOR MEALS. PATIENT OFFERED OTHER OPTIONS AND SNACKS OFFERED AND REFUSED. PATIENT'S PAIN WAS MANAGED WELL TODAY AND PATIENT WORKED WELL WITH THERAPY. BED IN LOW, CALL LIGHT AND GRABBER IN REACH, BED ALARM ON.
--- NOTE | 2020-03-12 20:00 | NUR ---
DECREASED ROM/STRENGTH TO RLE D/T SURGERY AND LOCKED KNEE BRACE. WEIGHT BEARING STATUS TO RLE IS NO WEIGHT BEARING. PATIENT UP TO BSC DURING DAY USING SLIDE BOARD, AT NIGHT PATIENT MAINTAINS BEDREST DUE TO FATIGUE FROM FULL DAY OF THERAPY AND USES BED RAINEY FOR BMS. DENIES CHEST PAIN, SHORTNESS OF BREATH. DENIES NUMBNESS/TINGLING TO EXTREMITIES AT THIS TIME. BED ALARM ON WHEN IN BED.
--- NOTE | 2020-03-12 23:58 | NUR ---
PATIENT RESTING IN BED DURING CHANGE OF SHIFT REPORT RECEIVED FROM DAY SHIFT NURSE.
[2020-03-13 05:43] VITALS: BP 124/43; PULSE 66; TEMP 98.1
--- NOTE | 2020-03-13 07:27 | NUR ---
CHANGE OF SHIFT REPORT GIVEN TO DAY SHIFT NURSECALISTA. BED ALARM ON.
--- NOTE | 2020-03-13 11:06 | NUR ---
Patient attending group therapy at this time. Patient reporting pain to rt femur and given prn pain meds with good effect. Will continue to monitor.
--- NOTE | 2020-03-13 12:58 | NUR ---
Patient resting in wheelchair awaiting thearpy for this afternoon. Patient tolerated meal well at lunch. Patient given prn pain meds to help her with afternoon therapy. Will continue to monitor.
--- NOTE | 2020-03-13 14:05 | NUR ---
JAN met with the patient to introduce oneself and to review equipment needs. The patient confirms that she needs the FWW, wheelchair, sliding board, and is interested in a hospital bed. JAN informed her of the cost of the hospital bed. The patient is concerned with having to pay up front for the hospital bed and having all equipment needed by time of d/c. JAN contacted and faxed the equipment order to Megan at [facility]. Megan reports that they would require a months payment up front for the hospital bed. JAN contacted and updated the patient's , Moises, on the above information. Moises reports that he is okay with and agreeable to pay the up front cost for the hospital bed. He states that they will pay for anything that the patient may need. Moises plans to be at the hospital tomorrow at 1330 for the family meeting. JAN to continue to follow.
[2020-03-13 17:47] VITALS: BP 122/45; PULSE 72; TEMP 98.1
--- NOTE | 2020-03-13 18:30 | NUR ---
CHANGE OF SHIFT REPORT RECEIVED FROM DAY SHIFT NURSE. BED ALARM ON.
--- NOTE | 2020-03-13 19:11 | NUR ---
Patient was seen by Dr. Cadena and there were no new orders. Patient voiced concern about her right heel, but Dr. Cadena reported that she would just need to continue to offload from that heel and follow up with wound care after discharge from [facility]. Patient voiced understanding.
--- NOTE | 2020-03-13 20:00 | NUR ---
DECREASED ROM/STRENGTH TO RLE D/T SURGERY & LOCKED KNEE BRACE (FOR SUPPORT TO RLE POST OP). DENIES NUMBNESS/TINGLING TO EXTREMITIES BILATERALLY. DENIES CHEST PAIN/SHORTNESS OF BREATHE. CONTINUES TO USE SLIDE BOARD FOR OUT OF BED TRANSFERS DURING DAY TIME. AT NIGHT CONTINUES TO USE PURE WICK FOR VOIDING AND BED RAINEY FOR STOOLS. BED ALARM ON WHEN IN BED.
[2020-03-14 05:48] VITALS: BP 110/48; PULSE 64; TEMP 98.4
--- NOTE | 2020-03-14 07:08 | NUR ---
CHANGE OF SHIFT REPORT GIVEN TO DAY SHIFT NURSECALISTA. BED ALARM ON.
--- NOTE | 2020-03-14 10:23 | NUR ---
Patient resting in bed, call light in reach and bed alarm set. Patient attended therapy this morning. Tolerated breakfast well. Denies questions at this time.
--- NOTE | 2020-03-14 11:05 | NUR ---
Patient was educated on the need to begin transferring from bed to bedside commode every time instead of using the purewick. Patient voiced understanding. Will continue to monitor.
[2020-03-14 11:07] LABS: COLLECTION METHOD CLEAN CATCH
[2020-03-14 11:19] LABS: PH 7 (5-8); URINE APPEARANCE Cloudy; URINE BILIRUBIN Negative (NEGATIVE); URINE BLOOD Negative (NEGATIVE); URINE COLOR Yellow; URINE GLUCOSE Negative (NEGATIVE); URINE KETONE Negative (NEGATIVE); URINE LEUKOCYTE ESTERASE 3+ (NEGATIVE); URINE NITRATE Negative (NEGATIVE); URINE PROTEIN(semi-quant) Negative (NEGATIVE); URINE UROBILINOGEN Negative (NEGATIVE)
[2020-03-14 11:20] LABS: URINE BACTERIA Occasional /hpf; URINE RBC 0-2 /hpf
[2020-03-14 16:25] LABS: PH 6 (5-8); URINE APPEARANCE Hazy; URINE BILIRUBIN Negative (NEGATIVE); URINE BLOOD Negative (NEGATIVE); URINE COLOR Yellow; URINE GLUCOSE Negative (NEGATIVE); URINE KETONE Negative (NEGATIVE); URINE LEUKOCYTE ESTERASE 1+ (NEGATIVE); URINE NITRATE Negative (NEGATIVE); URINE PROTEIN(semi-quant) Negative (NEGATIVE); URINE UROBILINOGEN >=4.0 mg/dL (NEGATIVE)
[2020-03-14 16:48] LABS: URINE RBC 0-2 /hpf
[2020-03-14 16:49] LABS: URINE BACTERIA Rare /hpf
--- NOTE | 2020-03-14 16:52 | NUR ---
JAN attended a family meeting with patient and her , Moises. Also present was IPR Director, PT, and OT. IPR Director started by explaining the purpose of the meeting. PT/OT discussed the patient's progress and their recommendation for a d/c next Thursday, 03/20, with home health PT/OT. The patient and her were agreeable to the plan. The team answered all questions. PT is recommending a wheelchair with removeable/swing away arms. JAN contacted Megan at [facility] to notify her of this. Megan reports that they do not have this type of wheelchair. JAN contacted Rubi at [facility]. Rubi reports that they do have this wheelchair. She states that Medicare will not cover the wheelchair though, due to the patient's injury being acute. The wheelchair would be $125 a month. Their hospital bed would be $173.80 a month. JAN also confirmed the wheelchair not being covered by Megan at [facility]. JAN presented and reviewed the IPR Team Conference Note with the patient and updated her about the equipment. SW to contact the patient's to update him on equipment and will continue to follow.
[2020-03-14 16:57] VITALS: BP 121/47; PULSE 71; TEMP 98.2
--- NOTE | 2020-03-14 19:52 | NUR ---
Straight cath completed to patient and UA was sent to lab for culture.
--- NOTE | 2020-03-14 20:15 | NUR ---
Received report from Konrad Morris. Pt currently lying in bed and watching television. Pt stated that she did not have any pain at this time. Pt has her call light within reach and her bed is in lowest positiion.
--- NOTE | 2020-03-14 23:00 | NUR ---
Pt is currenty lying in bed and stated that her pain is better. Pt did request something for pain when she was given her night medications. Pt is currently back in bed and has her call light within reach. Pt has no other concerns at this time. Pt legs are elevated at this time. There was a bruise noted on her right heel but can be seen in shift assessment.
[2020-03-15 05:10] VITALS: BP 116/48; PULSE 70; TEMP 97.8
--- NOTE | 2020-03-15 10:15 | NUR ---
PATIENT GIVEN SPRITE FOR AN UPSET STOMACH. WILL CONTINUE TO MONITOR.
--- NOTE | 2020-03-15 11:25 | NUR ---
PATIENT STILL REPORTS A UPSET STOMACH AFTER GROUP THERAPY AND STATES THAT THE SPRITE DID NOT HELP MUCH. PATIENT GIVEN PRN PO DOSE OF MAALOX AND SALTINE CRACKERS. PATIENT STATES THAT SHE DOES NOT WANT LUNCH. WILL CONTINUE TO MONITOR.
[2020-03-15 13:09] LABS: COLLECTION METHOD CATHETER
--- NOTE | 2020-03-15 14:08 | NUR ---
PATIENT STATES THAT HER STOMACH FEELS A LITTLE BIT BETTER BUT WOULD LIKE SOMETHING FOR PAIN AFTER WORKING WITH THERAPY. ITS TOO SOON FOR ULTRAM. PATIENT REFUSED NORCO. PATIENT REQUESTED PRN TYLENOL AND SPRITE.
--- NOTE | 2020-03-15 16:25 | NUR ---
JAN contacted and updated the patient's , Moises, about the equipment. Moises reports that he is agreeable to private pay for the wheelchair with swing away arms and the hospital bed from [facility]. Moises inquired about getting a FWW. JAN contacted Bonnie at [facility]. Bonnie reports that they do not bill Medicare for FWWs. JAN contacted Megan at [facility]. Megan reports that they will bill the patient's insurance, but will have the patient and sign an ABN, in case insurance does not. JAN informed Moises. Moises would like to pursue with getting the FWW and sliding board from [facility]. JAN contacted and faxed the wheelchair and hospital bed script to [facility]. Bonnie, at [facility], reports that she will contact the patient's to set up the equipment. The script for the sliding board and FWW was faxed to Megan at [facility]. JAN to continue to follow.
[2020-03-15 17:50] VITALS: BP 120/39; PULSE 73; TEMP 98.7
--- NOTE | 2020-03-15 18:00 | NUR ---
PATIENT REFUSED EVENING MULTIVITAMIN DUE TO HER NAUSEA. PATIENT CURRENTLY RESTING IN BED. WILL REPORT OFF TO ON COMING NURSE.
--- NOTE | 2020-03-15 18:50 | NUR ---
Received report from LUNA Eisenberg. Pt has her call light within reach and her bed is in lowest position.
--- NOTE | 2020-03-15 21:00 | NUR ---
Pt had complaints of itching underneath her brace. Pt brace was taken off and pt applied lotion to her leg. Pt dressing was changed at this time hon her right leg. A new airstrip was applied at this time. Pt has her call light within reach and her bed is in lowest position.
--- NOTE | 2020-03-16 02:04 | NUR ---
Pt called out and requested something for pain.Pt was given pain medication at this time. Pt is in bed and has her call light within reach and her bed is in lowest position.
--- NOTE | 2020-03-16 09:11 | NUR ---
PATIENT RESTING IN BED AT BEDSIDE SHIFT REPORT. CALL LIGHT WITHIN REACH, BED ALARM ON, BED IN LOW. PATIENT RECEIVED PRN PAIN MEDICINE AROUND [id number].
--- NOTE | 2020-03-16 18:17 | NUR ---
PATIENT RECEIVED PRN NORCO THIS AM FOR THERAPY. DENIED PAIN THE REST OF THE SHIFT. PATIENT UP AND RESTING IN WC AT BEDSIDE SHIFT REPORT. CALL LIGHT WITHIN REACH, CHAIR ALARM IN PLACE.
[2020-03-16 18:18] VITALS: BP 120/50; PULSE 74; TEMP 98.5
--- NOTE | 2020-03-16 21:00 | NUR ---
PT RESTING IN BED. WATCHING TV. IN [employer] SPIRITS. EXCITED ABOUT DC THURSDAY. REVIEWED IMPORTANCE ON SAFETY AT HOME. RLE IMMOBILIZER ON. RLE WARM WITH GOOD PULSES. SEE MAR FOR PAIN MED GIVEN. PT ALSO REPORTS ITCHING ALL OVER- NO RASH NOTED SEE MAR FOR BENADRYL GIVEN. CALL LIGHT IN REACH. BED ALARM SET.
[2020-03-17 05:10] VITALS: BP 115/48; PULSE 69; TEMP 97.8
--- NOTE | 2020-03-17 07:07 | NUR ---
Patient lying in bed with eyes open eating breakfast. Assessment completed. Patient requests to have two Tylenol and Benadryl to take prior to her therapy session because her pain increases during therapy. Administered as prescribed. Dressing to right outer thigh CDI, immobilizer to right knee in place. Patient denies any additional needs at this time.
--- NOTE | 2020-03-17 11:13 | NUR ---
Sitting up in wheelchair in room. Denies pain. Explains that she may want to lay in bed after lunch. Denies additional needs at this time.
--- NOTE | 2020-03-17 15:38 | NUR ---
Lying in bed with eyes open watching TV. Denies pain at this time. Asked the patient if she would like to get up to chair for dinner and the patient says that she does not know yet if she wants to or not. Denies any additional needs at this time. Will let us know if and when she is ready to get in chair for dinner.
[2020-03-17 17:00] VITALS: BP 99/50; PULSE 73; TEMP 98.6
--- NOTE | 2020-03-17 18:00 | NUR ---
Lying in bed with eyes open watching TV. Denies any additional needs or concerns at this time.
--- NOTE | 2020-03-17 19:26 | NUR ---
PT RESTING IN BED. AT BEDSIDE. DENIES NEEDS AT THIS TIME. CALL LIGHT IN REACH. BED ALARM SET.
--- NOTE | 2020-03-17 22:59 | NUR ---
PT REQUESTED BEDPAN FROM ENVIRONMENTAL SERVICES TECH. PT MANAGED IT HERSELF. DISCUSSED THE NEED TO GET UP OUT OF BED USE SLIDE BOARD TO BSC. PT RELATED NO ONE HAS TOLD HER SHE COULDNT USE BEDPAN. PLACE BDPAN IN BR. SHE AGAIN NOTIFIED ENVIRONMENTAL SERVICES TECH FOR BEDPAN. REFUSED TO USE BSC.
[2020-03-18 05:25] VITALS: BP 106/61; PULSE 66; TEMP 98.3
--- NOTE | 2020-03-18 07:18 | NUR ---
Sitting up in wheelchair watching TV. Prune juice was provided per patient request. Minimal pain at this time but patient requests to take Tylenol and Benadryl at this time as she knows the pain may increase with more activity. Administered Tylenol and Benadryl as prescribed. Takes all other medications without difficulty. Denies any additional needs at this time.
--- NOTE | 2020-03-18 14:18 | NUR ---
Patient contacted JAN to inquire about getting a commode. She reported that she was going home on Thursday and that she would need one by then. SW indicated that an inquiery would be made and a SW would follow up.
--- NOTE | 2020-03-18 15:40 | NUR ---
Assist patient from bed to wheel chair using slide board. Patient able to perform on own and required no assistance from this nurse. Denies pain at this time. Patient in halls in wheel chair with mask on exercising her legs. Denies additional needs at this time.
[2020-03-18 16:25] VITALS: BP 98/49; PULSE 74; TEMP 97.8
--- NOTE | 2020-03-18 22:10 | NUR ---
PT RESTING IN BED. PLAEASANT AND COOPERATIVE. ENC PT TO CALL FOR BSC INSTEAD OF BED RAINEY. PT AGREED. SEE MAR FOR PAIN MED AND BENADRYL GIVEN. IMMOBILIZE TO RIGHT LEG. SHEEP SKIN PLACED FOR SKIN IRRITATION. NWB TO RLE. USES SLIDE BOARD VERY WELL. NO NEEDS AT THIS TIME.
[2020-03-19 05:06] VITALS: BP 121/49; PULSE 68; TEMP 98.4
--- NOTE | 2020-03-19 10:48 | NUR ---
Patient attending group therapy at this time. Tolerated diet well this morning. Denied questions.
--- NOTE | 2020-03-19 15:05 | NUR ---
Dressing change completed to right lower extremity. No drainage or redness observed. Edges well approximated. Patient denies pain at this time. She was a SBA with slide board to the commode, bed and wheelchair today. She was continent of urine.
[2020-03-19 17:54] VITALS: BP 119/51; PULSE 72; TEMP 98.8
[2020-03-20 05:29] VITALS: BP 129/54; PULSE 70; TEMP 98.4
--- NOTE | 2020-03-20 05:32 | NUR ---
Patient did well during the night. She got up a few times to the BSC. She did most of the transfers on her own. Minimal complaints of pain, no complaints of nausea. Brace on during throughout the night. No other changes a this time. Call light within reach.
[2020-03-20] MEDS ORDERED: FOLIC ACID 11 MG/TA1 PO (08:41)
[2020-03-20] MEDS ORDERED: DUO-KAPS1 CAP PO (08:41)
[2020-03-20] MEDS ORDERED: THIAMINE 1100 MG/TAB PO (08:41)
[2020-03-20] MEDS ORDERED: ZINC OXIDE 28GM TOP (08:41)
[2020-03-20] MEDS ORDERED: DESENEX TP (08:41)
[2020-03-20] MEDS ORDERED: ULTRAM 50MG TAB50 MG PO (09:36)
--- NOTE | 2020-03-20 11:27 | NUR ---
Patient tolerated diet well this morning. Currently visiting with staff at this time. Patient was given bathing supplies and gave herself a bed bath this morning. Patient complaining of pain to right lower extremity and given prn pain meds with good effect. Patient was seen this morning by Dr. Cadena and patient will be discharged later this afternoon.
--- NOTE | 2020-03-20 13:33 | NUR ---
Megan, at [facility], reports that they will deliver the FWW and sliding board to the patient's room this morning. Bonnie, at [facility], reports that they need to speak to the patient's before delivering any of the equipment. JAN contacted and updated the patient's , Moises, on the above information. Moises plans to contact [facility]. Moises inquired about if and why the wheelchair is not covered by insurance. JAN contacted Rubi at [facility]. Rubi reports that the patient has an acute injury and that Medicare does not cover a wheelchair under an acute injury, causing the wheelchair to be an [id number] cost. Rubi reports that she has spoke to Moises and they plan on delivering the hospital bed and commode to the patient's home this morning. JAN contacted and updated Moises about the wheelchair. Moises verbalized understanding and would like to proceed with private paying for the wheelchair. The patient's wheelchair, FWW, and sliding board have been delivered to the patient's room. The patient is to discharge back home with her today, 03/20, with home health services for penitentiary/PT/OT from [facility]. JAN notified and faxed d/c orders to Monica at [facility]. JAN also presented and read the IM form outloud to the patient. The patient verbalized understanding and gave JAN approval to sign the form on her behalf. JAN provided her with a copy. No additional needs at this time.
--- NOTE | 2020-03-20 21:05 | NUR ---
Patient Health Summary, Discharge Summary, and home meds printed and reviewed with patient and . Stressed importance of follow up appointments. Reviewed medicaions, provided printed prescription for Tramadol. Belongings gathered by LUNA/Alexandra including glasses; cellphone; plant operations manager; sully and misc. clothes and items. Patient transported via wheelchair by Alexandra/LUNA and seatbelted for ride home with . Patient and denied any questions. Patient was a one person assist using slide board into car using a gait belt.
== END 2020-03-20 17:00 | disposition home health service (06) | DRG 560 ==
PROVIDERS: ADMIT Internal Medicine
DX: S72.451D Displaced supracondylar fracture without intracondylar extension of lower end of right femur, subsequent encounter for closed fracture with routine healing (principal); E87.1 Hypo-osmolality and hyponatremia; N39.0 Urinary tract infection, site not specified; I10 Essential (primary) hypertension; J44.9 Chronic obstructive pulmonary disease, unspecified; I48.91 Unspecified atrial fibrillation; D64.9 Anemia, unspecified; R32 Unspecified urinary incontinence; E87.6 Hypokalemia; L29.9 Pruritus, unspecified; F10.10 Alcohol abuse, uncomplicated; F41.9 Anxiety disorder, unspecified; W19.XXXD Unspecified fall, subsequent encounter; Z79.891 Long term (current) use of opiate analgesic; Z79.01 Long term (current) use of anticoagulants; Z90.710 Acquired absence of both cervix and uterus; Z88.2 Allergy status to sulfonamides; Z87.891 Personal history of nicotine dependence
CPT/HCPCS: 99222-AI; 99231-AI; 99232-AI; 99239

== ENCOUNTER 2020-05-31 10:45 | Outpatient (RCR) | payer MEDICARE ==
[~2020-05-31 10:45] MED LIST changes: +DESENEX TP; +DUO-KAPS1 CAP PO; +IPRATROPIUM BROM3 M1 IH; +PERFOROMIS20 MCG/2 M IH; +PULMICORT0.5 MG/2 M IH; +ZINC OXIDE 28GM TOP
== END 2020-06-30 14:49 | disposition home or self-care (01) ==
LOC: WSPT 10:45
DX: Z98.890 Other specified postprocedural states (principal)

== ENCOUNTER 2020-09-01 21:07 | Inpatient (IN) | payer MEDICARE ==
[~2020-09-01] VITALS: Ht 167.7 cm; Wt 72.7 kg
[2020-09-01 22:49] LABS: BASO # 0.1 (0.0-0.2); BASO % 0.9 % (0.0-2.0); EOS # 0.1 (0.0-0.7); EOS % 0.9 % (0-4.0); GRAN # 4.2 (1.4-6.5); GRAN % 72.3 % (42.2-75.2); HEMOGLOBIN 11.3 g/dl (12.5-16.0); LYMPH # 0.9 (1.2-3.4); LYMPH % 15.8 % (20.0-51.0); MEAN CELL VOLUME 97 fl (80.0-100.0); MEAN CORPUSCULAR HEMOGLOBIN 35 pg (27.0-31.0); MEAN CORPUSCULAR HGB CONC 37 g/dl (33.0-37.0); MEAN PLATELET VOLUME 9.3 fl (7.4-10.4); MONO # 0.5 (0.1-0.6); MONO % 9.2 % (1.7-9.3); PLATELET COUNT 169 K/mm3 (130-400); RED BLOOD COUNT 3.19 M/mm3 (4.10-5.30); REDCELL DISTRIBUTION WIDTH-CV 12.7 % (11.5-14.5)
[2020-09-01 22:55] LABS: INR 1.4 (0.8-3.0); PROTHROMBIN TIME 16.1 SECONDS (9.7-12.8)
[2020-09-01 22:59] LABS: ALCOHOL(ethanol),MEDICAL 127 mg/dL; ANION GAP 14 mmol/L (7-16); CALCIUM 8.1 mg/dL (8.4-10.2); CARBON DIOXIDE 19 mmol/L (22-30); CREATININE, serum 0.54 (0.52-1.25); GLUCOSE 89 mg/dL (74-106); POTASSIUM 3.6 mmol/L (3.4-5.0)
[2020-09-01 23:00] LABS: BLOOD UREA NITROGEN < 2 mg/dL (7-17)
[2020-09-01 23:02] LABS: SODIUM 117 mmol/L (137-145)
[2020-09-01 23:03] LABS: CHLORIDE 83 mmol/L (98-107)
[2020-09-01 23:20] LABS: MUCOUS Present /lpf; PH 5 (5-8); SQUAMOUS EPITHELIAL 0-2 /hpf; URINE APPEARANCE Clear; URINE BACTERIA Many /hpf; URINE BILIRUBIN Negative (NEGATIVE); URINE BLOOD Negative (NEGATIVE); URINE COLOR Yellow; URINE GLUCOSE Negative (NEGATIVE); URINE KETONE 1+ (NEGATIVE); URINE LEUKOCYTE ESTERASE Negative (NEGATIVE); URINE NITRATE Negative (NEGATIVE); URINE PROTEIN(semi-quant) Negative (NEGATIVE); URINE RBC 0-2 /hpf; URINE UROBILINOGEN >=4.0 mg/dL (NEGATIVE); URINE WBC 0-2 /hpf
[2020-09-01 23:25] LABS: COLLECTION METHOD CLEAN CATCH
[2020-09-01 23:34] LABS: MAGNESIUM 1.7 mg/dL (1.6-2.3); PHOSPHOROUS 3.3 mg/dL (2.5-4.5)
[2020-09-01] MEDS ORDERED: COZAAR 50MG50 MG/TAB PO (23:58)
[2020-09-02] VITALS (9 sets, daily range): BP systolic 72–107; BP diastolic 28–53; PULSE 67–74; TEMP 97.7–98.7
[2020-09-02] MEDS ORDERED: LEXAPRO 10MG10 MG PO (00:50)
--- NOTE | 2020-09-02 02:15 | NUR ---
Pt. arrived to the floor via stretcher. Pt. transfered to bed with 2 assist and slide board. Pt. is A&OX3, assessment complete. Covarrubias catheter to DD with yellow urine noted. Pt. reported pain at a 9 on pain scale after transfer. Gave pain meds per orders. Pt. denies further needs at this time.
[2020-09-02 07:02] LABS: BASO % 0.3 % (0.0-2.0); EOS % 0.5 % (0-4.0); GRAN % 80.9 % (42.2-75.2); HEMOGLOBIN 10.6 g/dl (12.5-16.0); LYMPH # 0.5 (1.2-3.4); LYMPH % 8.5 % (20.0-51.0); MEAN CELL VOLUME 99 fl (80.0-100.0); MEAN CORPUSCULAR HEMOGLOBIN 35 pg (27.0-31.0); MEAN CORPUSCULAR HGB CONC 35 g/dl (33.0-37.0); MEAN PLATELET VOLUME 10.1 fl (7.4-10.4); MONO # 0.6 (0.1-0.6); MONO % 9.3 % (1.7-9.3); PLATELET COUNT 143 K/mm3 (130-400); RED BLOOD COUNT 3.06 M/mm3 (4.10-5.30); REDCELL DISTRIBUTION WIDTH-CV 12.9 % (11.5-14.5)
[2020-09-02 07:03] LABS: HEMATOCRIT 30.4 % (37.0-47.0)
[2020-09-02 07:07] LABS: ALBUMIN 2.9 gm/dL (3.5-5.0); CALCIUM 7.5 mg/dL (8.4-10.2); CREATININE, serum 0.48 (0.52-1.25); POTASSIUM 3.4 mmol/L (3.4-5.0); TOTAL PROTEIN 5.4 gm/dL (6.4-8.2)
--- NOTE | 2020-09-02 09:00 | NUR ---
Patient is doing some what better with pain this morning. Her sodium is low, and her BP was low this morning. NS bolus ordered and changed fluids. Patient will not be having surgery today because of her electrolytes. Patient denies nausea. State her pain is always about a 9 on a 0-10 scale, even with morphine given. No other changes at this time. Call light within reach.
[2020-09-02 11:07] LABS: CALCIUM 7.6 mg/dL (8.4-10.2); CREATININE, serum 0.46 (0.52-1.25); POTASSIUM 3.6 mmol/L (3.4-5.0)
--- NOTE | 2020-09-02 12:27 | NUR ---
JAN met with patient to conduct intake evaluation. Patient lives at home in [place] with Moises (P# [phone]). Patient elected Moises as her DPOA-HC. Paperwork was filled out and signed by patient with JAN and LUNA Chandler as witnesses. Original was placed on the chart, and patient was provided with copies. Patient's PCP is Dr. Collier, and [facility]. Patient requires no assistance with ADLs. Patient uses walker, wheelchair, and shower bar for mobility. Patient has CPAP that she obtained through [employer]. Patient denies needing assistance with paying for medications. Patient plans to return hoe with her ; however, patient is unsure of plan due to hip fracture. Patient denies questions or concerns at this time. Patient has not had hip fracture fixed. Social work will follow as needs progress.
[2020-09-02 14:56] LABS: CALCIUM 7.9 mg/dL (8.4-10.2); CREATININE, serum 0.42 (0.52-1.25); POTASSIUM 3.6 mmol/L (3.4-5.0)
--- NOTE | 2020-09-02 18:49 | NUR ---
Patient has been doing ok today. Her sodium is still low. Her BP has been running low all day. Denies nausea. Pain control has been about the same. She has not been eating today, she is refusing food. Changed her to no free water, gave her gatorade to drink instead. [place] given for pain. No other changes at this time. Call light within reach.
[2020-09-02 19:31] LABS: CALCIUM 7.9 mg/dL (8.4-10.2); CREATININE, serum 0.4 (0.52-1.25); POTASSIUM 3.5 mmol/L (3.4-5.0)
--- NOTE | 2020-09-02 20:54 | NUR ---
PT LYING DOWN IN BED. ALERT AND ORIENTED BUT SLEEPY. DENIES PAIN SOA, DIZZY OR N/V. ASSESSMENT AND VITALS OBTAINED. PLAN OF CARE DISCUSSED. IS TO BE NPO AT MIDNIGHT. PT V/U OF CARES. NEEDS MET.
[2020-09-03] VITALS (15 sets, daily range): BP systolic 101–118; BP diastolic 37–68; PULSE 63–78; TEMP 97.6–98.8
--- NOTE | 2020-09-03 05:53 | NUR ---
PT NPO AT MIDNIGHT. IV FLUIDS CONTINUE. ONE DOSE OF PAIN MED NEEDED LAST NIGHT. PT SLEPT WITH EYES CLOSED, RESP EVEN AND UNLABORED DURING ROUNDING CHECKS. AWAITING SURGERY THIS AM IF MEDICALLY STABLE.
[2020-09-03 06:46] LABS: BASO % 0.4 % (0.0-2.0); EOS # 0.1 (0.0-0.7); EOS % 1.2 % (0-4.0); GRAN # 4.1 (1.4-6.5); GRAN % 82.6 % (42.2-75.2); HEMOGLOBIN 10.9 g/dl (12.5-16.0); LYMPH # 0.4 (1.2-3.4); LYMPH % 7.1 % (20.0-51.0); MEAN CELL VOLUME 102 fl (80.0-100.0); MEAN CORPUSCULAR HEMOGLOBIN 35 pg (27.0-31.0); MEAN CORPUSCULAR HGB CONC 35 g/dl (33.0-37.0); MEAN PLATELET VOLUME 10.3 fl (7.4-10.4); MONO # 0.4 (0.1-0.6); MONO % 8.5 % (1.7-9.3); PLATELET COUNT 121 K/mm3 (130-400); RED BLOOD COUNT 3.09 M/mm3 (4.10-5.30); REDCELL DISTRIBUTION WIDTH-CV 13.2 % (11.5-14.5)
[2020-09-03 06:54] LABS: ALANINE AMINOTRANSFERASE 61 U/L (4-34); ALBUMIN 2.8 gm/dL (3.5-5.0); ALKALINE PHOSPHATASE 103 U/L (50-136); ANION GAP 3 mmol/L (7-16); AST,SGOT 124 U/L (15-37); BILIRUBIN,TOTAL 0.8 mg/dL (0.0-1.0); CARBON DIOXIDE 25 mmol/L (22-30); CHLORIDE 96 mmol/L (98-107); CREATININE, serum 0.38 (0.52-1.25); GLUCOSE 108 mg/dL (74-106); POTASSIUM 3.4 mmol/L (3.4-5.0); SODIUM 125 mmol/L (137-145); TOTAL PROTEIN 5.3 gm/dL (6.4-8.2)
[2020-09-03 06:55] LABS: BLOOD UREA NITROGEN < 2 mg/dL (7-17)
[2020-09-03 07:35] LABS: HEMATOCRIT 31.5 % (37.0-47.0)
--- NOTE | 2020-09-03 08:30 | NUR ---
Patient in bed resting. Alert and oriented x3. Assessment complete. RLE appears shortened and externally rotated, pedal pulses intact. Dewayne hose and SCD to LLE. Denies needs at this time.
--- NOTE | 2020-09-03 10:50 | NUR ---
Patient to OR by bed.
[2020-09-03 11:05] LABS: INR 1.2 (0.8-3.0); PROTHROMBIN TIME 13.8 SECONDS (9.7-12.8)
--- NOTE | 2020-09-03 15:26 | NUR ---
The patient is having surgery for her hip fracture today. JAN contacted the patient's , Moises, to discuss post-acute upon discharge and informed him of the options. Moises reports that they do not have a preference at this time and he was agreeable for SW to send referrals to the local facilities. JAN consulted IPR Director, Rubi. JAN contacted and faxed a referral to [facility], and [facility]. Awaiting screens.
--- NOTE | 2020-09-03 16:40 | NUR ---
Johanna, at [facility], reports that they are able to accept the patient.
--- NOTE | 2020-09-03 17:52 | NUR ---
Patient has done well post op. Alert and oriented x 3. Foam dressing to right hip intact. Dewayne hose and SCDs to BLE. Pedal pulses intact. Fluids infusing per orders. Patient denies pain or further needs at this time. Will report off to operations supervisor 2nd shift.
--- NOTE | 2020-09-03 20:48 | NUR ---
PT SETTING UP IN BED. DENIES PAIN,N/V SOA OR DIZZY. NO GAS YET. DSG TO RT HIP C/D/I. ADVANCING DIET THIS EVENING. TOLERATED PUDDING AND ICE CREAM. IV SALINE LOCKED. POST OP VITALS FINISHED AND STABLE. PULSES WNL SCD AND TEDS ON. NEEDS MET.
--- NOTE | 2020-09-04 05:09 | NUR ---
REPORT TO GRETA BLOOD SUGAR OF 277 AND SCORE OF 0 ON ALCOHOL WD X 2 DAYS. WILL REVIEW CHART FOR EXPECTED ORDERS.
--- NOTE | 2020-09-04 05:14 | NUR ---
PT RESTED THROUGH OUT NIGHT WITH NO ISSUES. CONTINUES TO DENY PAIN, WILL ENCOURAGE PAIN MED PRIOR TO PHYSICAL THERAPY.
[2020-09-04 05:48] VITALS: BP 117/49; PULSE 73; TEMP 97.7
[2020-09-04 07:19] LABS: HEMOGLOBIN 10.3 g/dl (12.5-16.0); MEAN CELL VOLUME 102 fl (80.0-100.0); MEAN CORPUSCULAR HEMOGLOBIN 35 pg (27.0-31.0); MEAN CORPUSCULAR HGB CONC 34 g/dl (33.0-37.0); MEAN PLATELET VOLUME 10.7 fl (7.4-10.4); PLATELET COUNT 124 K/mm3 (130-400); RED BLOOD COUNT 2.94 M/mm3 (4.10-5.30)
[2020-09-04 07:28] LABS: INR 1.2 (0.8-3.0); PROTHROMBIN TIME 13.6 SECONDS (9.7-12.8)
[2020-09-04 07:30] LABS: ANION GAP 4 mmol/L (7-16); CALCIUM 8.2 mg/dL (8.4-10.2); CARBON DIOXIDE 28 mmol/L (22-30); CHLORIDE 96 mmol/L (98-107); GLUCOSE 164 mg/dL (74-106); POTASSIUM 3.4 mmol/L (3.4-5.0); SODIUM 128 mmol/L (137-145)
[2020-09-04 07:32] LABS: BLOOD UREA NITROGEN < 2 mg/dL (7-17)
[2020-09-04 08:00] VITALS: BP 103/74; PULSE 79; TEMP 98.1
--- NOTE | 2020-09-04 08:08 | NUR ---
Pt was awake alert, oriented x4, no complaints of pain. Assessement complete. CDI clean and intact. SCD and Dewayne hose on, replaced the adhesive for telemetry. Covarrubias intact 475ml desmond urine.
--- NOTE | 2020-09-04 08:10 | NUR ---
Patient in bed resting. Alert and oriented x 3. Assessment complete. Bulky dressing to right hip, Tedhose and SCDs to BLE. Pedal pulses intact. Patient denies pain when laying in bed. Denies further needs at this time.
[2020-09-04 08:18] LABS: BAND 5 % (0-10); LYMPHOCYTE 5 % (20.0-51.0); NEUTROPHILS 87 % (42.0-75.2); PLATELET ESTIMATE NORMAL (NORMAL)
--- NOTE | 2020-09-04 11:37 | NUR ---
Patient sitting up in recliner, continues to deny pain.
[2020-09-04 11:49] VITALS: BP 103/53; PULSE 72; TEMP 97.5
--- NOTE | 2020-09-04 12:15 | NUR ---
First visit from the quill buncher and sorter. No needs right now.
--- NOTE | 2020-09-04 13:27 | NUR ---
Rubi, IPR Director, reports that they can tentatively accept the patient if they have a bed available. SW to fax updates to ADDY John, and Allison.
[2020-09-04 16:24] VITALS: BP 97/48; PULSE 73; TEMP 98.2
--- NOTE | 2020-09-04 18:37 | NUR ---
Patient doing well throughout the day, patient has been up to recliner this afternoon. Patient states she has minimal pain when in bed, refuses pain meds at this time. Covarrubias maintained to DD with clear yellow urine present. Denies further needs at this time. Will report off to shift production associate.
[2020-09-04 20:16] VITALS: BP 103/46; PULSE 71; TEMP 97.9
--- NOTE | 2020-09-04 20:25 | NUR ---
Pt. sitting up in bed. Pt. is A&OX3, assessment complete. INT to rt. wrist patent. Pt. reports pain at a 5 on pain scale, giving pain meds per orders. Dressing to rt. hip CDI. Pt. denies further needs, call light within reach.
[2020-09-05 20:00] VITALS: BP 87/57; PULSE 77; TEMP 97.4
--- NOTE | 2020-09-05 22:00 | NUR ---
Pt. sitting up in bed. Pt. is A&OX3, assessment complete. INT to rt. wrist patent. Dressing to rt. hip CDI. Pt. reports pain at a 5 on pain scale, and would like a pain pill with evening meds. Will give per orders. Pt. denies further needs, call light within reach.
[2020-09-06 00:04] VITALS: BP 84/55; PULSE 78; TEMP 98
[2020-09-06 04:00] VITALS: BP 79/50; PULSE 79; TEMP 97.5
[2020-09-06 06:45] LABS: BASO % 0.5 % (0.0-2.0); EOS # 0.1 (0.0-0.7); EOS % 1.4 % (0-4.0); GRAN # 3.8 (1.4-6.5); GRAN % 68.1 % (42.2-75.2); LYMPH % 17.9 % (20.0-51.0); MEAN CELL VOLUME 104 fl (80.0-100.0); MEAN CORPUSCULAR HGB CONC 34 g/dl (33.0-37.0); MEAN PLATELET VOLUME 10.4 fl (7.4-10.4); MONO # 0.7 (0.1-0.6); MONO % 11.7 % (1.7-9.3); PLATELET COUNT 153 K/mm3 (130-400); RED BLOOD COUNT 2.72 M/mm3 (4.10-5.30); REDCELL DISTRIBUTION WIDTH-CV 13.6 % (11.5-14.5)
[2020-09-06 06:50] LABS: INR 1.9 (0.8-3.0); PROTHROMBIN TIME 21.1 SECONDS (9.7-12.8)
[2020-09-06 06:58] LABS: HEMATOCRIT 28.2 % (37.0-47.0); HEMOGLOBIN 9.5 g/dl (12.5-16.0); MEAN CORPUSCULAR HEMOGLOBIN 35 pg (27.0-31.0)
[2020-09-06 07:06] LABS: CALCIUM 8.3 mg/dL (8.4-10.2); CREATININE, serum 0.39 (0.52-1.25); POTASSIUM 3.5 mmol/L (3.4-5.0)
[2020-09-06 07:19] VITALS: BP 91/49; PULSE 80; TEMP 98.4
--- NOTE | 2020-09-06 08:47 | NUR ---
*Late entry-09/05/20* The patient's RN notified JAN that ortho is recommending an ASO brace for the patient's ankle. Materials management does not have the brace. JAN contacted and faxed the patient's notes to Danna at [facility]. Danna faxed over their request form. Form received and filled out. JAN faxed the request form back to [facility]. The ASO brace was delivered to the patient's room. Ortho would like for the patient to work with therapy after the ASO brace is placed. JAN attended clinical rounds. The patient is to tentatively d/c tomorrow. Cheikh, at [facility], reports that they are able to accept the patient. JAN faxed updates to ADDY John, and Allison.
--- NOTE | 2020-09-06 08:51 | NUR ---
Lois, at [facility], reports that they are able to accept the patient.
[2020-09-06] MEDS ORDERED: FERROUS GL325 MG/TAB PO (09:42)
[2020-09-06] MEDS ORDERED: ALBUTEROL0.83 MG/ML IH (09:42)
[2020-09-06] MEDS ORDERED: TYLENOL 500MG500 MG PO (09:43)
[2020-09-06] MEDS ORDERED: ULTRAM 50MG TAB50 MG PO (09:43)
[2020-09-06] MEDS ORDERED: NORCO 325 MG-51 TAB PO (09:43)
[2020-09-06] MEDS ORDERED: OSCAL 500 TAB500 MG PO (09:43)
[2020-09-06] MEDS ORDERED: DULCOLAX S10 MG/SUPP RC (09:44)
[2020-09-06] MEDS ORDERED: VITAMIN C500 MG PO (09:44)
[2020-09-06] MEDS ORDERED: SENEXON-S 50-81 EACH PO (09:44)
--- NOTE | 2020-09-06 10:00 | NUR ---
PATIENT SHIFT ASSESSMENT COMPLETED AT THIS TIME. AQUACEL TO RIGHT HIP IS CD&I. POSITIVE PEDAL PULSES EQUAL BILATERALLY. CAP REFILL <3 SECONDS. CMS INTACT. EDEMA TO RIGHT HIP. STUDENT NURSE PASSING AM MEDICATIONS. PATIENT DENIES ANY NEEDS AT THIS TIME.
--- NOTE | 2020-09-06 10:20 | NUR ---
PATIENT GIVEN PRN PO PAIN PILL PRIOR TO BEING TRANSFERRED TO INPATIENT REHAB. REPORT GIVEN TO LUNA GRIGSBY. WILL TRANSFER PATIENT SOON THE ROOM ON REHAB IS READY.
[2020-09-06 10:33] LABS: ALBUMIN 2.7 gm/dL (3.5-5.0); BILIRUBIN,TOTAL 0.5 mg/dL (0.0-1.0); CALCIUM 8.6 mg/dL (8.4-10.2); CREATININE, serum 0.36 (0.52-1.25); POTASSIUM 3.4 mmol/L (3.4-5.0); TOTAL PROTEIN 5.2 gm/dL (6.4-8.2)
--- NOTE | 2020-09-06 11:00 | NUR ---
Rubi, IPR Director, reports that she is able to accept the patient today. The patient is to discharge today, 09/06, to [facility]. SW attempted to contact and update the patient's , Moisse. SW left him a voicemail. No additional needs at this time.
--- NOTE | 2020-09-06 11:58 | NUR ---
PATIENT DISCHARGED AND TRANSFERRED TO INPATIENT ROOM 336.
[2020-09-06 12:20] LABS: BASO % 0.2 % (0.0-2.0); GRAN # 5.4 (1.4-6.5); GRAN % 81.3 % (42.2-75.2); HEMATOCRIT 29.6 % (37.0-47.0); HEMOGLOBIN 10.2 g/dl (12.5-16.0); LYMPH # 0.6 (1.2-3.4); LYMPH % 9.4 % (20.0-51.0); MEAN CELL VOLUME 102 fl (80.0-100.0); MEAN CORPUSCULAR HEMOGLOBIN 35 pg (27.0-31.0); MEAN CORPUSCULAR HGB CONC 35 g/dl (33.0-37.0); MEAN PLATELET VOLUME 10.6 fl (7.4-10.4); MONO # 0.6 (0.1-0.6); MONO % 8.5 % (1.7-9.3); PLATELET COUNT 149 K/mm3 (130-400); RED BLOOD COUNT 2.89 M/mm3 (4.10-5.30); REDCELL DISTRIBUTION WIDTH-CV 13.2 % (11.5-14.5)
== END 2020-09-06 11:58 | DRG 522 ==
LOC: COL.ER 21:07 → SURG 23:30
PROVIDERS: Emergency Medicine; Nurse Anesthetist, Certified Registered; Physician Assistant; Student in an Organized Health Care Education/Training Program; ADMIT Student in an Organized Health Care Education/Training Program
PROC: 0SR9039 Replacement of Right Hip Joint with Ceramic Synthetic Substitute, Cemented, Open Approach (ICD-10-PCS; principal; 2020-09-01)
DX: S72.001A Fracture of unspecified part of neck of right femur, initial encounter for closed fracture (principal); E87.1 Hypo-osmolality and hyponatremia; E87.2 Acidosis; K21.9 Gastro-esophageal reflux disease without esophagitis; F41.9 Anxiety disorder, unspecified; I95.9 Hypotension, unspecified; J44.9 Chronic obstructive pulmonary disease, unspecified; I48.91 Unspecified atrial fibrillation; F32.9 Major depressive disorder, single episode, unspecified; F17.210 Nicotine dependence, cigarettes, uncomplicated; E87.8 Other disorders of electrolyte and fluid balance, not elsewhere classified; E16.2 Hypoglycemia, unspecified; F10.10 Alcohol abuse, uncomplicated; Y90.6 Blood alcohol level of 120-199 mg/100 ml; R32 Unspecified urinary incontinence; Z98.51 Tubal ligation status
CPT/HCPCS: 99223-AI; 99231-AI; 99232-AI; 99233-AI; 99239; A9284; C1713; C1776; J0171; J0690; J1170; J2250; J2270; J2405; J2704; J3010; J7030; J7040; J7042; J7120

== ENCOUNTER 2020-09-06 12:00 | Inpatient (IN) | payer MEDICARE ==
[~2020-09-06] VITALS: Ht 167.6 cm; Wt 77.9 kg
[~2020-09-06 12:00] MED LIST changes: +DULCOLAX S10 MG/SUPP RC; +FERROUS GL325 MG/TAB PO; +LEXAPRO 10MG10 MG PO; +OSCAL 500 TAB500 MG PO; +SENEXON-S 50-81 EACH PO; +TYLENOL 500MG500 MG PO; +VITAMIN C500 MG PO
[2020-09-06 18:00] VITALS: BP 94/60; PULSE 79; TEMP 97.9
--- NOTE | 2020-09-06 19:59 | NUR ---
Received report from LUNA Eisenberg. Patient arrived to [facility] this afternoon and her lunch was ordered. Admission papers were signed and patient vitals were taken. Patient denied pain. Patient was educated on the processes of [facility] and denied any questions. She is currently resting in bed call light in reach and bed alarm set. Reported off to night nurse.
--- NOTE | 2020-09-07 00:34 | NUR ---
STRONGLY REFUSED BSC. WANTED BEDPAN. VOIDED W/O DIFFICULTY. TOOK OFF TEDS AND ASO TO RT FOOT. SCD;'S ON. NO OTHER NEEDS.
[2020-09-07 05:27] VITALS: BP 101/61; PULSE 77; TEMP 97.8
--- NOTE | 2020-09-07 07:16 | NUR ---
PT SLEEPING IN BED AT BEDSIDE SHIFT REPORT. REFUSED TO USE BSC OVERNIGHT.
--- NOTE | 2020-09-07 15:02 | NUR ---
The patient is due for her second COVID vaccine. Angel, with [facility] delivered the vaccine and consent forms to JAN. JAN gave the vaccine to the RN. JAN presented the forms to the patient. The patient asked that SW assist her with filling out the forms. The patient signed the forms. JAN provided the signed forms back to Angel with [facility]. JAN then followed back up with the patient to complete intake, as the patient in new to [facility]. The patient lives in [place] with her , Moises (ph#[phone]). She reports independence with ADLs prior to her hip fracture and has a cane, walker, wheelchair, and shower chair. She states that she was also receiving home health services from [facility]. JAN contacted and faxed updates to Monica at [facility]. Her PCP is Dr. Bianca Collier and receives her medications from [facility]. She reports no difficulties obtaining her meds. The patient's DPOA-HC is in EMR and it designates her . The patient states that therapy worked her hard today, but that it is going well. JAN then contacted the patient's , Moises, to follow up. Moises reports that he is not doing so well right now and is in the ER. He states he had an EKG this morning and was told to come to the ER. He states that he is having back pain and has not told the patient yet he is here. He states that he plans on calling her soon. JAN updated the patient's RN and IPR Director.
--- NOTE | 2020-09-07 15:46 | NUR ---
SECOND DOSE OF MODERNA COVID-19 VACCINE ADMINISTERED AROUND 1415 BY NURSE IVAN FROM SURGICAL TO PTS LEFT DELTOID. R LOT # IS [id number] AND EXPIRATION DATE IS FEBRUARY 21, 2021 1400. DELORIS WITH JAN OBTAINED INFORMED CONSENT.
[2020-09-07 16:17] VITALS: BP 105/49; PULSE 83; TEMP 98.7
--- NOTE | 2020-09-07 17:43 | NUR ---
PT'S IN ED TODAY AFTER EKG REPORTED SOB. WAITING TO HEAR IF HE WILL BE ADMITTED. PT IS ANXIOUS ABOUT THIS. DENIES PAIN AT THIS TIME. HAS RECEIVED PRN NORCO TWICE AND TRAMADOL ONCE. UTILIZING ICE THERAPY WHEN NOT WITH THERAPY. HEEL PROTECTORS AND CUSHIONS PLACED FOR POTENTIAL DTI TO RT HEEL, MAY BE BRUISE.
--- NOTE | 2020-09-07 19:35 | NUR ---
SHIFT REPORT RECIVED FROM DAY SHIFT NURSE. PT RECEIVING AN RT TREATMENT AT THIS TIME. DENIES ANY NEEDS. CALL LIGHT IN REACH.
--- NOTE | 2020-09-08 00:27 | NUR ---
SHIFT ASSESSMENT COMPLETE. PT ASSIST TO BSC. VOIDS SUKHDEEP URINE. ENCOURAGED PT TO DRINK MORE WATER. DRESSING TO RIGHT HIP C/D/I. REPORTS SHE HAD A BM TODAY AND REFUSED HER SENNA TONIGHT. TAKES NORCO X 2 TABS AT HS FOR PAIN 11/19. REQUEST HER GILMAR HOSE STAY ON THEY DID NOT GET ON UNTIL MID AM. HEEL PROTECTORS ON BILAT. RIGHT LEG ON PILLOW. ICE PACK REFILLED AND APPLIED TO RIGHT HIP. CALL LIGHT IN REACH. BED ALARM ON.
[2020-09-08 05:29] VITALS: BP 100/47; PULSE 75; TEMP 98.3
--- NOTE | 2020-09-08 06:59 | NUR ---
REQUEST AND GIVEN NOROH 2 TABS FOR HIP AND ANKLE PAIN. REPORT GIVEN TO DAY SHIFT NURSE.
--- NOTE | 2020-09-08 07:51 | NUR ---
PATIENT SHIFT ASSESSMENT COMPLETE. AM MEDICATIONS ADMINISTERED. PATIENT DENIES PAIN WHILE AT REST. RIGHT ANKLE SWOLLEN. RIGHT HIP AQUACEL DRESSING IS CD&I. GILMAR HOSE TO BLE. CALL LIGHT WITHIN REACH. PATIENT DENIES ANY NEEDS AT THIS TIME.
--- NOTE | 2020-09-08 11:56 | NUR ---
PATIENT GIVEN PRN PO PAIN MEDICATION AT THIS TIME. PATIENT REPORTS THAT SHE IS VERY SORE AFTER THERAPY TODAY. PATIENT REPORTING MOST OF HER PAIN IS IN HER ANKLE. RLE ELEVATED ON A PILLOW WITH ICE PACK TO HIP. HEEL PROTECTORS APPLIED. CALL LIGHT IN REACH. NO OTHER NEEDS AT THIS TIME.
[2020-09-08 17:27] VITALS: BP 96/53; PULSE 77; TEMP 98.2
--- NOTE | 2020-09-08 17:48 | NUR ---
Patient resting in bed. Working on dinner tray. Request 2 tabs norco for pain in her right heel. Increased with movement. She reports her heel pain is worse than hip pain. Will report off to night nurse
--- NOTE | 2020-09-08 18:57 | NUR ---
RECEIVED CHANGE OF SHIFT REPORT FROM DAY SHIFT NURSE.
--- NOTE | 2020-09-08 21:10 | NUR ---
REQUESTED AND GIVEN PAIN MED, SEE eMAR FOR MED GIVEN. DECREASED STRENGTH TO RLE DUE TO RECENT HIP FRACTURE REPAIR. DENIES CHEST PAIN/SOA/NAUSEA/NUMBNESS OR TINGLING TO RLE AT THIS TIME. BED ALARM ON WHILE IN BED.
[2020-09-09 05:46] VITALS: BP 101/58; PULSE 74; TEMP 98
--- NOTE | 2020-09-09 07:20 | NUR ---
CHANGE OF SHIFT REPORT GIVEN TO DAY SHIFT NURSE, CALISTA CARRASCO.
--- NOTE | 2020-09-09 08:33 | NUR ---
Patient resting in bed, call light in reach and bed alarm set. Patient reports 2/10 pain and given prn ultram. Patient denies questions at this time. Will continue to monitor.
--- NOTE | 2020-09-09 10:39 | NUR ---
Patient resting in bed, call light in reach and bed alarm set. Denies any questions or needs at this time.
--- NOTE | 2020-09-09 11:46 | NUR ---
Patient was a one assist with a gait belt to her BSC. Patient pulls pants up and down by herself and wipes herself with toilet paper. She was a SBA with ambulation from BSC to bed.
--- NOTE | 2020-09-09 14:13 | NUR ---
Patient's arrived at 2:15 pm and brought patient some personal items. Patient was given prn tramadol at 2:00 pm for right hip pain and refilled ice bags for right hip. Will continue to monitor.
[2020-09-09 16:30] VITALS: BP 103/60; PULSE 65; TEMP 98.7
--- NOTE | 2020-09-09 19:40 | NUR ---
RECEIVED CHANGE OF SHIFT REPORT FROM DAY SHIFT NURSE. BED ALARM ON WHEN IN BED
--- NOTE | 2020-09-09 19:46 | NUR ---
Patient received her supper at 6:30 pm tonight per patient request. Patient currently resting in bed, call light in reach and bed alarm set. Reported off to night nurse.
--- NOTE | 2020-09-09 20:00 | NUR ---
DECREASED STRENGTH TO RIGHT LOWER EXTREMITY RELATED TO RECENT RIGHT HIP SURGERY FOR FRACTURE. DENIES NUMBNESS OR TINGLING TO EXTREMITIES. DENIES CHEST PAIN/SOA/NAUSEA AT THIS TIME. OBSERVED SOME WHEEZING TO CALIXTO LUNG BAE WITH PATIENT REPORTING SHE HAD JUST RECEIVED BREATHING TREATMENT.
[2020-09-10 05:02] VITALS: BP 108/50; PULSE 76; TEMP 97.8
[2020-09-10 06:13] LABS: BASO % 0.6 % (0.0-2.0); EOS # 0.2 (0.0-0.7); GRAN # 3.4 (1.4-6.5); GRAN % 66.8 % (42.2-75.2); LYMPH # 0.7 (1.2-3.4); LYMPH % 14.6 % (20.0-51.0); MEAN CELL VOLUME 107 fl (80.0-100.0); MEAN CORPUSCULAR HGB CONC 33 g/dl (33.0-37.0); MEAN PLATELET VOLUME 9.6 fl (7.4-10.4); MONO # 0.7 (0.1-0.6); MONO % 14.6 % (1.7-9.3); PLATELET COUNT 172 K/mm3 (130-400); RED BLOOD COUNT 2.72 M/mm3 (4.10-5.30)
[2020-09-10 06:23] LABS: HEMOGLOBIN 9.5 g/dl (12.5-16.0); MEAN CORPUSCULAR HEMOGLOBIN 35 pg (27.0-31.0)
[2020-09-10 06:32] LABS: ALBUMIN 2.5 gm/dL (3.5-5.0); BILIRUBIN,TOTAL 0.7 mg/dL (0.0-1.0); CALCIUM 8.1 mg/dL (8.4-10.2); CREATININE, serum 0.47 (0.52-1.25); MAGNESIUM 1.7 mg/dL (1.6-2.3); POTASSIUM 3.8 mmol/L (3.4-5.0)
--- NOTE | 2020-09-10 07:06 | NUR ---
CHANGE OF SHIFT REPORT GIVEN TO DAY SHIFT NURSE, SUE CARRASCO.
--- NOTE | 2020-09-10 09:39 | NUR ---
PT RESTING IN BED AT BEDSIDE SHIFT REPORT. PT REPORTS MORE PAIN IN RT HEEL THEN IN RT HIP. HEEL APPEARS MAYBE SLIGHTLY BRUISED, IS BLANCHABLE AND INTACT. PT HAS CUSHION IN PLACE AND HEEL PROTECTORS WHILE IN BED. PT UP TO BSC TODAY A SBA.
--- NOTE | 2020-09-10 10:37 | NUR ---
AQUACELL TO RT HIP INCISION WITH LARGE AMOUNT OF SANGUINEOUS DRAINAGE. CHANGED TODAY 09/10. INCISION WELL APPROXIMATED, STEPH INTACT, EDEMA PRESENT 1+, NO INCREASED REDNESS.
--- NOTE | 2020-09-10 14:01 | NUR ---
Admission QIM scores were reviewed by the team. Code of 5 chosen for toilet hygiene was determined by team discussion to be the most usual performance for this patient during the assessment period. Code of 4 chosen for toileting transfers was determined by team discussion to be the most usual performance for this patient during the assessment period. Code of 3 chosen for sit to lying was determined by team discussion to be the most usual performance for this patient during the assessment period. Code of 3 for chair/bed to chair transfers was determined by team discussion to be the most usual performance for this patient during the assessment period.--Rubi Artis, PD
--- NOTE | 2020-09-10 14:33 | NUR ---
Transcriptionist check in with patient following the weekend. Patient states she had her vaccine on Thursday and her only side effect was a sore arm. Patient states she worked hard with therapy today. SW will continue to follow.
[2020-09-10 16:45] VITALS: BP 112/57; PULSE 81; TEMP 98.9
--- NOTE | 2020-09-10 19:57 | NUR ---
PT RECEIVED PRN NORCO THIS AFTERNOON AND PRN TRAMADOL THIS AM. BETH RICHMONDG CHANGED TO RT HIP REPAIR. PT ANXIOUS ABOUT , WHO TRANSFERRED TO [facility] TODAY.
--- NOTE | 2020-09-10 23:54 | NUR ---
2100- PT ASSESS COMPLETE. RATES PAIN 4/10 IN RT HIP. DSG C/D/I. DENIES SOA, DIZZY OR LIGHTHEADED. ASO BRACE TO ANKLE. RT HEEL BRUISING , HEEL PROTECTOR. CALL LIGHT W IN REACH. BED LOW. NEEDS MET.
[2020-09-11 02:51] VITALS: BP 116/59; PULSE 71; TEMP 98.1
--- NOTE | 2020-09-11 06:01 | NUR ---
PT FELT LIKE SHE DIDNT REST THROUGH OUT THE NIGHT. RESTING W ROUNDS W EYES CLOSED. PAIN 12/20 THIS AM. 2 TRAMDOL GIVEN PER PRN ORDER. AM PROTONIX. DSG TO HIP REMAINS C/D/I. UP TO COMMODE W MININAL ASST. NEEDS MET.
[2020-09-11 17:59] VITALS: BP 92/53; PULSE 78; TEMP 98.3
--- NOTE | 2020-09-11 19:30 | NUR ---
RECEIVED CHANGE OF SHIFT REPORT FROM DAY SHIFT NURSE. BED ALARM ON.
[2020-09-12 05:13] VITALS: BP 100/55; PULSE 73; TEMP 98
--- NOTE | 2020-09-12 07:27 | NUR ---
CHANGE OF SHIFT REPORT GIVEN TO DAY SHIFT NURSESUE.
--- NOTE | 2020-09-12 09:41 | NUR ---
PT SLEEPING IN BED AT BEDSIDE SHIFT REPORT. RECEIVED PRN NORCO 1 TAB THIS AM PRIOR TO THERAPY. WAS ASSISTED TO THE RESTROOM PRIOR TO THERAPY.
--- NOTE | 2020-09-12 15:37 | NUR ---
Linderman Machine Operator met with patient to review and provide copy of team conference notes. Tentative discharge date is set for 09/18/20. Recommendation is for Home Health and patient was previously set up with [facility]. SW also discussed having a family meeting. Patient's is in the hospital at this time but patient states Thursday at 1330 should work as long as her gets out of the hospital by then. JAN provided date/time of meeting to Rubi [facility] Director. JAN also contacted Monica at [facility] to provide tentative discharge date.
[2020-09-12 17:52] VITALS: BP 88/43; PULSE 75; TEMP 98.1
--- NOTE | 2020-09-12 19:09 | NUR ---
RECEIVED CHANGE OF SHIFT REPORT FROM DAY SHIFT NURSE.
--- NOTE | 2020-09-12 20:00 | NUR ---
DECREASED STRENGTH TO RLE RELATED TO RECENT R HIP SURGERY. DENIES CHEST PAIN/SOA/NAUSEA AT THIS TIME. BED ALARM WHILE IN BED.
--- NOTE | 2020-09-12 20:30 | NUR ---
PATIENT INSISTS ON USING BSC INSTEAD OF WALKING TO BATHROOM, SUGGESTED BY DAY SHIFT STAFF TO ASSIST IN POST OP RECOVERY/IMPROVING MOBILITY.
[2020-09-13 05:30] VITALS: BP 108/71; PULSE 78; TEMP 97.7
--- NOTE | 2020-09-13 09:40 | NUR ---
Patient resting in bed, call light in reach and denies any questions. Patient ate oatmeal and yogurt, did not like garcia. Currently drinking tomotoe juice.
--- NOTE | 2020-09-13 10:42 | NUR ---
Prior to group therapy patient attempted to ambulate from toilet to her wheelchair independently. She had used her call light, but she thought she would be fine ambulating by herself without waiting for staff. Patient was educated on the need to wait for staff to assist her with ambulation. She voiced understanding.
--- NOTE | 2020-09-13 10:42 | NUR ---
Patient attending Group therapy at this time.
[2020-09-13 15:39] VITALS: BP 110/52; PULSE 85; TEMP 97.7
--- NOTE | 2020-09-13 20:11 | NUR ---
Patient attended all therapies today. She uses her call light appropriatly and did not try to transfer without waiting for staff to arrive the rest of the afternoon. She tolerated diet well. Reported pain to her right heel and observed more bruising to that area. See new order for Right ankle X-Ray. Awaiting new orders from hospitalist with new results. Patient currently resting in bed, call light in reach and bed alarm set. Reported off to night nurse.
--- NOTE | 2020-09-13 21:00 | NUR ---
NOTIFIED CATHY MARQUES OF RT FOOT RADIOLOGY REPORT. NEW ORDERS. NWB TO RT FOOT. ORTHO CONSULT TOMORROW.
--- NOTE | 2020-09-13 21:30 | NUR ---
PT RESTING IN BED. PT INFORMED OF PLAN FOR STRESS FX OF RT FOOT. NWB. ORTHO CONSULT- PT AGREEABLE. ICE PACK PLACE TO RY ANKLE AND ELEVATED ON PILLOWS. PT REFUSED ANKLE SUPPORT AT THIS TIME. SEE MAR FOR PAIN MEDS GIVEN. ANTERIOR RT HIP/THIGH SWOLLEN POCKET NOTED. CALL LIGHT IN REACH. BED ALARM SET.
[2020-09-14 05:44] VITALS: BP 123/62; PULSE 78; TEMP 97.7
--- NOTE | 2020-09-14 10:00 | NUR ---
Data Entry Representative met with patient to follow up before the weekend. Patient reports she has a right heel fracture but still feels like she can return home on Thursday. Patient states her is out of the hospital and plans to be in attendance for Thursday's meeting. JAN faxed clinical updates to Monica at [facility] and will continue to follow.
[2020-09-14 16:05] VITALS: BP 109/52; PULSE 75; TEMP 98.6
--- NOTE | 2020-09-14 19:21 | NUR ---
PATIENT HAD UNEVENTFUL DAY. PATIENT GIVEN PRN PAIN MEDICATION NEEDED THROUGHOUT THE SHIFT. PATIENT CURRENTLY RESTING IN BED WITH RLE ELEVATED ON TWO PILLOWS. CAM BOOT IN PLACE. ICE PACK TO HEEL. BEDSIDE REPORT GIVEN TO LUNA ALVAREZ.
--- NOTE | 2020-09-14 20:00 | NUR ---
PT RESTING IN BED. PAIN BETTER WITH TRAMADOL TO RT FOOT. RT FOOT ELEVATED AND ICE PACK APPLIED. WBAT WITH CAM BOOT ON AT ALL TIMES. DENIES NEEDS AT THIS TIME.
[2020-09-15 04:43] VITALS: BP 110/58; PULSE 73; TEMP 98.6
[2020-09-15 16:38] VITALS: BP 123/53; PULSE 73; TEMP 98.4
--- NOTE | 2020-09-15 17:46 | NUR ---
PT RECEIEVED PRN TRAMADOL ONCE THIS SHIFT AND APAP TWICE. PT UTILIZING ICE THERAPY TO HIP AND HEEL INTERMITTENTLY. CONTINUES WITH CAM BOOT AT ALL TIMES EXCEPT SHOWERS. PT'S MOBITLITY IS GREATLY INCREASED AND DOING WELL WITH EXERCISES IN BED AND IN ROOM TODAY WITH NO THERAPY.
--- NOTE | 2020-09-15 20:00 | NUR ---
PT RESTING IN BED. PT DENEIS ANY NUMBNESS OR TINGLING TO RLE. WEARING CAM BOOT. CALL LIGHT IN REACH. BED ALARM SET.
[2020-09-16 05:06] VITALS: BP 112/53; PULSE 71; TEMP 98
--- NOTE | 2020-09-16 11:23 | NUR ---
PT SLEEPING IN BED AT BEDSIDE SHIFT REPORT. RECEIVED PRN APAP AND TRAMADOL THIS AM. HAS BEEN UP AND WHEELING IN THE HALLS FREQUENTLY THIS WEEKEND. PT MANAGING CAM BOOT VERY INDEPENDENTLY. CALLING FOR SUPERVISION BUT COMPLETING ALL TASKS IND.
[2020-09-16 15:59] VITALS: BP 121/55; PULSE 74; TEMP 98.8
--- NOTE | 2020-09-16 17:43 | NUR ---
PT WALKED 50 FEET IN HALLWAY TODAY AND WHEELED SEFL DOWN TO COURTRD FOR SHORT TIME WITH STAFF. PT RECEIEVED PRN TRAMADOL TWICE THIS SHIFT AND APAP ONCE. PT UTILIZES ICE THERAPY. PT VERY IND WITH CARES.
--- NOTE | 2020-09-16 21:00 | NUR ---
RESTING IN BED. WATCHING TV. WANTED ES TYLENOL FOR RT HIP PAIN. RT FOOT W/O PAIN AT PRESENT TIME. WEARS CAM BOOT. TOES WARM PINK. NO NUMBNESS. PT SBA WITH AMB TO BR WITH WALKER. USES GOOD SAFETY JUDGEMENT. CALL LIGHT IN REACH. BED ALARM SET.
[2020-09-17 05:35] VITALS: BP 119/54; PULSE 71; TEMP 98
--- NOTE | 2020-09-17 10:26 | NUR ---
Initial visit; Patient thanked Line Up Examiner for looking in on her and offering God's blessings.
[2020-09-17] MEDS ORDERED: ZINC OXIDE56.7 GM TOP (10:40)
[2020-09-17] MEDS ORDERED: NORCO 325 MG-51 TAB PO (10:42)
--- NOTE | 2020-09-17 10:43 | NUR ---
Patient working with therapy at this time. Patient reported pain 4/10 this morning when on cycle in therapy. Given prn pain med. Currently reporting pain 2/10 at this time. Will continue to monitor.
[2020-09-17] MEDS ORDERED: FERROUS GL325 MG/TAB PO (10:45)
--- NOTE | 2020-09-17 13:30 | NUR ---
Call placed to Admissions to have them change preferred pharmacy to [facility].
--- NOTE | 2020-09-17 14:06 | NUR ---
Call placed to Dr. Bianca Collier awaiting a return call to set up a one week follow up appointment. Cardiology appointment with Dr. Martines has been scheduled for 10/01/20 at 9:00 am and Ortho appointment is set for 09/19/20 at 8:45 am.
--- NOTE | 2020-09-17 15:39 | NUR ---
Screwdown Operator participated in patient/family conference which included patient's , Moises who is at bedside. PT/OT reviewed patient's progress and patient will discharge tomorrow, 09/18/[address] [facility]. The team reviewed with Moises that patient will need some assistance getting on her boot and Don indicated he can do that. No DME needs at this time.
[2020-09-17 16:13] VITALS: BP 119/61; PULSE 75; TEMP 98.4
--- NOTE | 2020-09-17 19:55 | NUR ---
RECEIVED CHANGE OF SHIFT REPORT FROM DAY SHIFT NURSE.
--- NOTE | 2020-09-17 20:00 | NUR ---
PATIENT UP INDEPENDENTLY IN ROOM WITH NO REPORTED PROBLEMS.
--- NOTE | 2020-09-17 20:11 | NUR ---
Received return call from patient's pcp and follow up appointment has been made. Patient had pain managed with prn norco this shift. She was made independent in her room with her walker. She wears her cam boot to right lower leg at all times. Patient currently resting in bed, call light in reach. Reported off to night nurse.
[2020-09-18 06:01] VITALS: BP 127/60; PULSE 76; TEMP 98.4
--- NOTE | 2020-09-18 07:27 | NUR ---
CHANGE OF SHIFT REPORT GIVEN TO DAY SHIFT NURSE, SUE CARRASCO.
--- NOTE | 2020-09-18 09:38 | NUR ---
PT RESTING IN BED AT BEDSIDE SHIFT REPORT. IS MOD-I IN ROOM. RECEIEVED PRN TRAMADOL THIS AM PRIOR TO GETTING UP AND PACKED FOR DISCHARGE.
--- NOTE | 2020-09-18 14:13 | NUR ---
PT HEALTH SUMMARY, DISCHARGE SUMMARY, AND HOME MEDS PRINTED AND REVIEWED WITH PT. STRESSED IMPORTANCE OF FU APPTS. REVIEWED MEDICATIONS, PRESCRIPTIONS FOR NORCO AND FERROUS GLUCONATE SENT TO [facility]. BELONGINGS GATHERED BY PT INCLUDING CELLPHONE AND FOOD PREPARATION SUPERVISOR AND MEDICATIONS FROM PHARMACY. PT TRANSPORTED VIA WC BY NURSE AND SEATBELTED FOR RIDE HOME. PT AND RELATION DENIED QUESTIONS. PRN TRAMADOL GIVEN THIS AM.
--- NOTE | 2020-09-18 14:25 | NUR ---
Patient to discharge home today with [facility] PT/OT/Nursing. JAN read IM form aloud to patient who verbalized understanding then gave SW permission to sign on her behalf. JAN placed original in chart then provided copy to patient. JAN contacted Monica at [facility] and faxed discharge orders. No additional needs at this time.
== END 2020-09-18 12:50 | disposition home health service (06) | DRG 560 ==
PROVIDERS: ADMIT Internal Medicine
DX: S72.451D Displaced supracondylar fracture without intracondylar extension of lower end of right femur, subsequent encounter for closed fracture with routine healing (principal); E87.2 Acidosis; E22.2 Syndrome of inappropriate secretion of antidiuretic hormone; I48.91 Unspecified atrial fibrillation; J44.9 Chronic obstructive pulmonary disease, unspecified; E87.8 Other disorders of electrolyte and fluid balance, not elsewhere classified; D64.9 Anemia, unspecified; I10 Essential (primary) hypertension; I95.9 Hypotension, unspecified; E16.2 Hypoglycemia, unspecified; F10.10 Alcohol abuse, uncomplicated; K21.9 Gastro-esophageal reflux disease without esophagitis; R32 Unspecified urinary incontinence; R09.02 Hypoxemia; F41.9 Anxiety disorder, unspecified; F32.9 Major depressive disorder, single episode, unspecified; W19.XXXD Unspecified fall, subsequent encounter; Z79.01 Long term (current) use of anticoagulants; Z79.891 Long term (current) use of opiate analgesic; Z96.641 Presence of right artificial hip joint; Z88.2 Allergy status to sulfonamides
CPT/HCPCS: 99222-AI; 99231-AI; 99232-AI; 99239

== ENCOUNTER 2020-10-05 10:27 | Inpatient (IN) | payer MEDICARE ==
[~2020-10-05] VITALS: Ht 167.6 cm; Wt 70.3 kg
[~2020-10-05 10:27] MED LIST changes: +ZINC OXIDE56.7 GM TOP
[2020-10-05] MEDS ORDERED: CARDIZEM CD 24240 MG PO (11:02)
[2020-10-05] MEDS ORDERED: COZAAR 50MG50 MG/TAB PO (11:05)
[2020-10-05] MEDS ORDERED: PROTONIX 40MG T40 MG PO (11:05)
[2020-10-05] MEDS ORDERED: ZOLOFT 25MG25 MG PO ×2 (11:06→11:29)
[2020-10-05] MEDS ORDERED: NATURE'S BLEND100 M2 PO (11:11)
[2020-10-05] MEDS ORDERED: PERCOCET 325 MG1 TA2 PO (12:23)
[2020-10-05 18:04] LABS: CREATININE, serum 0.68 (0.52-1.25); POTASSIUM 3.8 mmol/L (3.4-5.0)
[2020-10-06 00:03] VITALS: BP 100/49; PULSE 72; TEMP 98.6
[2020-10-06 04:11] VITALS: BP 106/50; PULSE 72; TEMP 98
[2020-10-06 06:58] LABS: BASO # 0.1 (0.0-0.2); BASO % 0.8 % (0.0-2.0); EOS # 0.2 (0.0-0.7); EOS % 2.3 % (0-4.0); GRAN # 6.2 (1.4-6.5); GRAN % 71.9 % (42.2-75.2); HEMOGLOBIN 11.6 g/dl (12.5-16.0); LYMPH # 1.2 (1.2-3.4); LYMPH % 13.7 % (20.0-51.0); MEAN CELL VOLUME 103 fl (80.0-100.0); MEAN CORPUSCULAR HEMOGLOBIN 33 pg (27.0-31.0); MEAN CORPUSCULAR HGB CONC 32 g/dl (33.0-37.0); MEAN PLATELET VOLUME 9.5 fl (7.4-10.4); MONO # 0.9 (0.1-0.6); MONO % 10.7 % (1.7-9.3); PLATELET COUNT 251 K/mm3 (130-400)
[2020-10-06 06:59] LABS: HEMATOCRIT 36.2 % (37.0-47.0)
[2020-10-06 07:21] VITALS: BP 119/46; PULSE 72; TEMP 98.1
[2020-10-06 11:33] VITALS: BP 112/43; PULSE 69; TEMP 98.4
[2020-10-06 15:00] VITALS: BP 106/46; PULSE 69; TEMP 98.6
[2020-10-06 19:36] VITALS: BP 110/52; PULSE 71; TEMP 98.2
[2020-10-07] VITALS (7 sets, daily range): BP systolic 92–114; BP diastolic 4–60; PULSE 67–73; TEMP 97–98.2
[2020-10-08] VITALS (11 sets, daily range): BP systolic 99–124; BP diastolic 46–57; PULSE 71–83; TEMP 97.6–98.2
[2020-10-08 06:04] LABS: HEMOGLOBIN 10.4 g/dl (12.5-16.0); MEAN CELL VOLUME 103 fl (80.0-100.0); MEAN CORPUSCULAR HEMOGLOBIN 33 pg (27.0-31.0); MEAN CORPUSCULAR HGB CONC 32 g/dl (33.0-37.0); MEAN PLATELET VOLUME 9.5 fl (7.4-10.4); PLATELET COUNT 230 K/mm3 (130-400); RED BLOOD COUNT 3.17 M/mm3 (4.10-5.30); REDCELL DISTRIBUTION WIDTH-CV 12.6 % (11.5-14.5)
[2020-10-08 06:14] LABS: CALCIUM 8.5 mg/dL (8.4-10.2); CREATININE, serum 0.53 (0.52-1.25); POTASSIUM 4.1 mmol/L (3.4-5.0)
[2020-10-08 06:21] LABS: HEMATOCRIT 32.6 % (37.0-47.0)
[2020-10-09] VITALS (7 sets, daily range): BP systolic 97–123; BP diastolic 43–52; PULSE 69–79; TEMP 97.9–98.5
[2020-10-09 06:45] LABS: HEMOGLOBIN 10.2 g/dl (12.5-16.0); MEAN CELL VOLUME 103 fl (80.0-100.0); MEAN CORPUSCULAR HEMOGLOBIN 33 pg (27.0-31.0); MEAN CORPUSCULAR HGB CONC 32 g/dl (33.0-37.0); MEAN PLATELET VOLUME 9.9 fl (7.4-10.4); PLATELET COUNT 211 K/mm3 (130-400); RED BLOOD COUNT 3.07 M/mm3 (4.10-5.30); REDCELL DISTRIBUTION WIDTH-CV 12.7 % (11.5-14.5)
[2020-10-09 06:54] LABS: HEMATOCRIT 31.5 % (37.0-47.0)
[2020-10-09 06:58] LABS: CALCIUM 8.4 mg/dL (8.4-10.2); CREATININE, serum 0.57 (0.52-1.25); POTASSIUM 3.7 mmol/L (3.4-5.0)
[2020-10-09 07:19] LABS: BAND 3 % (0-10); LYMPHOCYTE 5 % (20.0-51.0); NEUTROPHILS 92 % (42.0-75.2); PLATELET ESTIMATE NORMAL (NORMAL)
[2020-10-10] VITALS (7 sets, daily range): BP systolic 115–119; BP diastolic 46–52; PULSE 69–72; TEMP 97.2–98.3
[2020-10-10 06:06] LABS: HEMATOCRIT 30.1 % (37.0-47.0); HEMOGLOBIN 9.7 g/dl (12.5-16.0)
[2020-10-10 06:16] LABS: CALCIUM 8.5 mg/dL (8.4-10.2); CREATININE, serum 0.5 (0.52-1.25); POTASSIUM 3.7 mmol/L (3.4-5.0)
[2020-10-10] MEDS ORDERED: PERCOCET 325 MG1 TA2 PO (09:00)
[2020-10-10] MEDS ORDERED: TYLENOL 500MG500 MG PO (09:01)
[2020-10-10] MEDS ORDERED: CALCIUM 600 PLU1 TAB PO (09:02)
[2020-10-10] MEDS ORDERED: SENEXON-S 50-81 EACH PO (09:02)
== END 2020-10-10 16:00 | DRG 494 ==
LOC: COL.ER 10:27 → JCC 17:11 → SURG 10-10 16:08
PROVIDERS: Orthopaedic Surgery; Physician Assistant
PROC: BW1CYZZ Fluoroscopy of Lower Extremity using Other Contrast (ICD-10-PCS; 2020-10-08)
PROC: 0QSG04Z Reposition Right Tibia with Internal Fixation Device, Open Approach (ICD-10-PCS; principal; 2020-10-08 14:00)
DX: S82.191A Other fracture of upper end of right tibia, initial encounter for closed fracture (principal); I48.91 Unspecified atrial fibrillation; I10 Essential (primary) hypertension; J44.9 Chronic obstructive pulmonary disease, unspecified; K21.9 Gastro-esophageal reflux disease without esophagitis; S82.831A Other fracture of upper and lower end of right fibula, initial encounter for closed fracture; D53.9 Nutritional anemia, unspecified; R09.02 Hypoxemia; F32.9 Major depressive disorder, single episode, unspecified; F41.9 Anxiety disorder, unspecified; R32 Unspecified urinary incontinence; W19.XXXA Unspecified fall, initial encounter; Y92.009 Unspecified place in unspecified non-institutional (private) residence as the place of occurrence of the external cause; Z87.891 Personal history of nicotine dependence; Z20.822 Contact with and (suspected) exposure to COVID-19; Z79.01 Long term (current) use of anticoagulants; Z79.891 Long term (current) use of opiate analgesic; Z96.641 Presence of right artificial hip joint; Z88.2 Allergy status to sulfonamides
CPT/HCPCS: 99222-AI; 99231-AI; 99232-AI; 99239; A4314; A9284; C1713; J0690; J1100; J1170; J1650; J2250; J2405; J2704; J2795; J3010; J7120; L1832

== ENCOUNTER 2021-01-17 09:45 | Outpatient (RCR) | payer MEDICARE, MEDICAID ==
[~2021-01-17 09:45] MED LIST changes: +CALCIUM 600 PLU1 TAB PO; +PERCOCET 325 MG1 TA2 PO; +ZOLOFT 25MG25 MG PO
== END 2021-02-20 11:02 | disposition home or self-care (01) ==
LOC: WSPT 09:45
DX: Z96.641 Presence of right artificial hip joint (principal)

== ENCOUNTER 2022-01-22 21:56 | Inpatient (IN) | payer MEDICARE, MEDICAID ==
[~2022-01-22] VITALS: Ht 167.6 cm; Wt 73.7 kg
[2022-01-22 22:34] LABS: HEMOGLOBIN 10.7 g/dl (12.5-16.0); MEAN CELL VOLUME 87 fl (80.0-100.0); MEAN CORPUSCULAR HEMOGLOBIN 31 pg (27-31); MEAN CORPUSCULAR HGB CONC 35 g/dl (33.0-37.0); MEAN PLATELET VOLUME 9.3 fl (7.4-10.4); PLATELET COUNT 195 K/mm3 (130-400); RED BLOOD COUNT 3.49 M/mm3 (4.10-5.30); REDCELL DISTRIBUTION WIDTH-CV 12.8 % (11.5-14.5)
[2022-01-22 22:36] LABS: HEMATOCRIT 30.2 % (37.0-47.0)
[2022-01-22 22:52] LABS: ALBUMIN 1.7 gm/dL (3.4-4.8); ANION GAP 17 mmol/L (7-16); BLOOD UREA NITROGEN 10 mg/dL (10-20); CALCIUM 7.3 mg/dL (8.4-10.2); CARBON DIOXIDE 15 mmol/L (23-31); CREATININE, serum 0.71 mg/dL (0.57-1.11); GLUCOSE 103 mg/dL (70-99); MAGNESIUM 1.5 mg/dL (1.6-2.6); PHOSPHOROUS 2.7 mg/dL (2.3-4.7); POTASSIUM 3.4 mmol/L (3.5-4.5); SODIUM 120 mmol/L (136-145)
[2022-01-22 22:55] LABS: CHLORIDE 88 mmol/L (98-107)
[2022-01-22 23:00] LABS: TROPONIN-I < 0.010 ng/mL (0.00-0.033)
[2022-01-22 23:01] LABS: BAND 5 % (0-10); LYMPHOCYTE 2 % (20.0-51.0); NEUTROPHILS 92 % (42.0-75.2); PLATELET ESTIMATE NORMAL (NORMAL)
[2022-01-23] VITALS (1169 sets, daily range): BP systolic 74–114; BP diastolic 47–62; PULSE 70–76; TEMP 97.1–98.1; O2SAT 57–100
[2022-01-23 00:34] LABS: ARTERIAL BLD GAS O2 SATURATION 81.5 % (92-100); ARTERIAL BLD GAS TCO2 CT 18.6; ARTERIAL BLOOD GAS BASE EXCESS -7.4 (-2-2); ARTERIAL BLOOD GAS HCO3 17.6 meq/L (22-26); ARTERIAL BLOOD GAS PCO2 33.8 mmHg (35-45); ARTERIAL BLOOD GAS pH 7.33 (7.35-7.45)
[2022-01-23 00:36] LABS: ARTERIAL BLOOD GAS PO2 47.4 mmHg (80-100)
[2022-01-23] MEDS ORDERED: COZAAR 50MG50 MG/TAB PO (01:14)
[2022-01-23 02:33] LABS: COLLECTION METHOD IN
[2022-01-23 02:41] LABS: MUCOUS Present (NOT PRESENT); PH 5 (5-8); SQUAMOUS EPITHELIAL 0-2 /hpf (0-10); URINE APPEARANCE Cloudy (CLEAR/HAZY); URINE BACTERIA Many /hpf (NONE SEEN); URINE BLOOD 2+ (NEGATIVE); URINE COLOR Amber (YELLOW); URINE GLUCOSE Negative (NEGATIVE); URINE KETONE Trace (NEGATIVE); URINE NITRATE Negative (NEGATIVE); URINE PROTEIN(semi-quant) 1+ (NEGATIVE)
[2022-01-23 03:20] LABS: ARTERIAL BLOOD GAS BASE EXCESS -9.7 (-2-2); ARTERIAL BLOOD GAS HCO3 16.4 meq/L (22-26); ARTERIAL BLOOD GAS PCO2 36.7 mmHg (35-45); ARTERIAL BLOOD GAS PO2 86.4 mmHg (80-100); ARTERIAL BLOOD GAS pH 7.27 (7.35-7.45)
[2022-01-23 03:42] LABS: CREATININE, serum 0.61 mg/dL (0.57-1.11); POTASSIUM 3.4 mmol/L (3.5-4.5)
--- NOTE | 2022-01-23 03:43 | NUR ---
Patient arrived to ICU 5 at 0251. Patient is alert and orientated, remains on bipap 14 over 6 at 100% FiO2. Covarrubias catheter in place. TLC attempted in right groin by ED physician prior to arrival. Dressing changed. Site free of hematoma. Right IJ TLC in place with blood return in all ports. Coccyx and groin area excoriated and erythema, blanchable. Barrier cream applied. Patient reports shortness of breath with current bipap settings. Spoke with Alma ZAMUDIO at 0314. Per Allisons request contact Dr. Clements with [facility] for recommendations. Per Dr. Clements, obtain stat BMP and call back with result. Will speak with Alma regarding patient. BMP obtained and pending at this time. Patient resting in bed on bipap watching television at this time. Call light in reach.
--- NOTE | 2022-01-23 04:05 | NUR ---
CVP on admission was 4. Repeat CVP at 0400 is 8.
[2022-01-23 04:28] LABS: ARTERIAL BLD GAS O2 SATURATION 98.1 % (92-100); ARTERIAL BLOOD GAS BASE EXCESS -9.5 (-2-2); ARTERIAL BLOOD GAS HCO3 15.1 meq/L (22-26); ARTERIAL BLOOD GAS PCO2 29.1 mmHg (35-45); ARTERIAL BLOOD GAS PO2 111.8 mmHg (80-100); ARTERIAL BLOOD GAS pH 7.33 (7.35-7.45)
[2022-01-23 06:10] LABS: HEMOGLOBIN 10.8 g/dl (12.5-16.0); MEAN CELL VOLUME 86 fl (80.0-100.0); MEAN CORPUSCULAR HEMOGLOBIN 30 pg (27-31); MEAN CORPUSCULAR HGB CONC 35 g/dl (33.0-37.0); MEAN PLATELET VOLUME 9.6 fl (7.4-10.4); PLATELET COUNT 200 K/mm3 (130-400); RED BLOOD COUNT 3.55 M/mm3 (4.10-5.30); REDCELL DISTRIBUTION WIDTH-CV 12.6 % (11.5-14.5)
--- NOTE | 2022-01-23 06:12 | NUR ---
66 yo female admitted for further care and management of severe sepsis possibly of pulmonary source. ht 167.6 cm wt 69.7 kg SCr 0.61 with estimated CrCl >60 ml/min half life 10.4 hours Plan: Patient received an initial loading dose of vancomycin 1250 mg x1 in the ED (17.9 mg/kg); will follow with a maintenance regimen of vancomycin 750 mg q8h to target a goal trough of 15-20 mcg/ml. Will follow patient's renal function, micro data, and vancomycin levels as indicated to assess for any necessary changes to regimen. Thank you for this dosing consult.
[2022-01-23 06:16] LABS: HEMATOCRIT 30.5 % (37.0-47.0)
[2022-01-23 06:24] LABS: ALBUMIN 1.7 gm/dL (3.4-4.8); BILIRUBIN,TOTAL 0.7 mg/dL (0.2-1.2); CALCIUM 7.2 mg/dL (8.4-10.2); CREATININE, serum 0.59 mg/dL (0.57-1.11); MAGNESIUM 2.2 mg/dL (1.6-2.6); POTASSIUM 5.4 mmol/L (3.5-4.5); TOTAL PROTEIN 4.8 gm/dL (6.2-8.1)
--- NOTE | 2022-01-23 07:00 | NUR ---
BEDSIDE REPORT RECEIVED FROM LUNA ARIAS. PT ADMITTIED FROM ED OVERNIGHT DUE TO PNA AND HYPOXIA. PT CURRENTLY ON BIPAP AT 18/6 AND 100%. ALERT AND ORIENTED. RIJ TLC IN PLACE WITH GTTS INFUSING. FC TO DEPENDENT DRAINANGE.
[2022-01-23 07:03] LABS: BAND 9 % (0-10); NEUTROPHILS 91 % (42.0-75.2)
[2022-01-23 07:09] LABS: PLATELET ESTIMATE NORMAL (NORMAL)
[2022-01-23 10:41] LABS: PLEURAL FLUID RBC 1000 /mm3 (0-0); PLEURAL FLUID WBC 713 /mm3
[2022-01-23 10:45] LABS: PLEURAL FLUID APPEARANCE CLEAR; PLEURAL FLUID COLOR YELLOW
[2022-01-23 11:09] LABS: ARTERIAL BLD GAS O2 SATURATION 99.4 % (92-100); ARTERIAL BLOOD GAS BASE EXCESS -4.8 (-2-2); ARTERIAL BLOOD GAS HCO3 18.1 meq/L (22-26); ARTERIAL BLOOD GAS PCO2 27.7 mmHg (35-45); ARTERIAL BLOOD GAS pH 7.43 (7.35-7.45)
[2022-01-23 11:10] LABS: ARTERIAL BLOOD GAS PO2 165.9 mmHg (80-100)
[2022-01-23 12:29] LABS: CALCIUM 7.1 mg/dL (8.4-10.2); CREATININE, serum 0.57 mg/dL (0.57-1.11); POTASSIUM 4.1 mmol/L (3.5-4.5)
[2022-01-23 15:29] LABS: CALCIUM 7.3 mg/dL (8.4-10.2); CREATININE, serum 0.55 mg/dL (0.57-1.11); POTASSIUM 3.9 mmol/L (3.5-4.5)
--- NOTE | 2022-01-23 15:53 | NUR ---
[employer] spoke with RN who advised it would be best to contact patient's , Moises (ph#[phone]) to complete intake as patient is currently on bipap. JAN contacted Moises who advised he and patient live in [place] and that patient sees Dr. Collier for primary care. Moises reports they basically "have their own DME store" as patient has a cane, walker, wheelchair, stool riser, and hospital bed. Patient also has home oxgyen through [employer]. Moises advised patient has not been doing so well with ADLS recently and has a fear of falling due to history of falls and fractures. Moises assists patient with ADLS and advised she can only walk about 100 ft at a time. Moises is in the process of looking into Assisted Living be advised many places have a wait list. Patient has DPOA-HC in EMR that designates Moises. JAN will continue to follow for discharge needs. Moises advised he was told patient may require mechanical ventilation at some point. Discharge Plan: Unknown, pending progress and recommendations
[2022-01-23 19:23] LABS: CALCIUM 6.8 mg/dL (8.4-10.2); CREATININE, serum 0.51 mg/dL (0.57-1.11); POTASSIUM 3.7 mmol/L (3.5-4.5)
[2022-01-23 19:59] LABS: ARTERIAL BLD GAS O2 SATURATION 95.5 % (92-100); ARTERIAL BLD GAS TCO2 CT 22.5; ARTERIAL BLOOD GAS BASE EXCESS -1.3 (-2-2); ARTERIAL BLOOD GAS HCO3 21.5 meq/L (22-26); ARTERIAL BLOOD GAS PCO2 30.5 mmHg (35-45); ARTERIAL BLOOD GAS pH 7.47 (7.35-7.45)
--- NOTE | 2022-01-23 21:42 | NUR ---
BEDSIDE SHIFT REPORT RECEIVED FROM LUNA HERNANDES. PT CURRENTLY RESTING IN BED. LINES RUNNING ACCORDING TO REPORT (SEE DRIP FLOW SHEET). MERCADO DRAINING APPROPRIATELY. BIPAP SETTINGS APPROPRIATE TO REPORT. NO C/O PAIN OR DISCOMFT. VSS, NO ACUTE CHANGES NOTED AT THIS TIME.
[2022-01-23 23:11] LABS: CALCIUM 6.8 mg/dL (8.4-10.2); CREATININE, serum 0.53 mg/dL (0.57-1.11); POTASSIUM 3.7 mmol/L (3.5-4.5)
[2022-01-24] VITALS (1350 sets, daily range): BP systolic 90–125; BP diastolic 54–67; PULSE 78–80; TEMP 97; O2SAT 64–100
[2022-01-24 04:20] LABS: HEMOGLOBIN 10.1 g/dl (12.5-16.0); MEAN CELL VOLUME 83 fl (80.0-100.0); MEAN CORPUSCULAR HEMOGLOBIN 30 pg (27-31); MEAN CORPUSCULAR HGB CONC 36 g/dl (33.0-37.0); MEAN PLATELET VOLUME 9.8 fl (7.4-10.4); PLATELET COUNT 248 K/mm3 (130-400); RED BLOOD COUNT 3.35 M/mm3 (4.10-5.30); REDCELL DISTRIBUTION WIDTH-CV 12.4 % (11.5-14.5)
[2022-01-24 04:25] LABS: HEMATOCRIT 27.9 % (37.0-47.0)
[2022-01-24 04:48] LABS: ALBUMIN 1.6 gm/dL (3.4-4.8); BILIRUBIN,TOTAL 0.5 mg/dL (0.2-1.2); CREATININE, serum 0.51 mg/dL (0.57-1.11); POTASSIUM 3.4 mmol/L (3.5-4.5); TOTAL PROTEIN 4.5 gm/dL (6.2-8.1)
[2022-01-24 04:57] LABS: BAND 8 % (0-10); LYMPHOCYTE 2 % (20.0-51.0); NEUTROPHILS 88 % (42.0-75.2)
[2022-01-24 04:58] LABS: PLATELET ESTIMATE NORMAL (NORMAL)
[2022-01-24 05:06] LABS: CALCIUM 6.9 mg/dL (8.4-10.2)
--- NOTE | 2022-01-24 07:00 | NUR ---
REPORT RECEIVED FROM LUNA MOTA. PT ALERT AND ORIENTED THIS AM. WEARS BIPAP. RIJ TLC AND 20G PIV TO LAC. FC TO DEPENDENT DRAINAGE. NPO AT THIS TIME DUE TO BIPAP USE. POTASSIUM PROTOCAL IN PLACE. PT OFFERS NO COMPLAINTS.
[2022-01-24 07:09] LABS: ARTERIAL BLD GAS O2 SATURATION 94.4 % (92-100); ARTERIAL BLOOD GAS BASE EXCESS 4.1 (-2-2); ARTERIAL BLOOD GAS HCO3 26.9 meq/L (22-26); ARTERIAL BLOOD GAS PCO2 34.1 mmHg (35-45); ARTERIAL BLOOD GAS PO2 68.4 mmHg (80-100); ARTERIAL BLOOD GAS pH 7.52 (7.35-7.45)
--- NOTE | 2022-01-24 13:50 | NUR ---
The patient remains on the bipap.
[2022-01-25] VITALS (1358 sets, daily range): BP systolic 101–113; BP diastolic 61–73; PULSE 75–82; TEMP 96.5–98.9; O2SAT 82–100
[2022-01-25 05:45] LABS: MEAN CELL VOLUME 86 fl (80.0-100.0); MEAN CORPUSCULAR HGB CONC 36 g/dl (33.0-37.0); MEAN PLATELET VOLUME 9.5 fl (7.4-10.4); PLATELET COUNT 161 K/mm3 (130-400); RED BLOOD COUNT 3.23 M/mm3 (4.10-5.30); REDCELL DISTRIBUTION WIDTH-CV 12.6 % (11.5-14.5)
[2022-01-25 05:51] LABS: HEMATOCRIT 27.7 % (37.0-47.0); HEMOGLOBIN 9.9 g/dl (12.5-16.0); MEAN CORPUSCULAR HEMOGLOBIN 31 pg (27-31)
[2022-01-25 06:07] LABS: ALBUMIN 1.6 gm/dL (3.4-4.8); BILIRUBIN,TOTAL 0.5 mg/dL (0.2-1.2); CREATININE, serum 0.51 mg/dL (0.57-1.11); MAGNESIUM 1.5 mg/dL (1.6-2.6); POTASSIUM 3.2 mmol/L (3.5-4.5); TOTAL PROTEIN 4.6 gm/dL (6.2-8.1)
[2022-01-25 06:27] LABS: LYMPHOCYTE 1 % (20.0-51.0); NEUTROPHILS 98 % (42.0-75.2)
[2022-01-25 06:28] LABS: PLATELET ESTIMATE NORMAL (NORMAL)
[2022-01-25 11:43] LABS: CLOSTRIDIUM DIFF A/B NEG; CLOSTRIDIUM DIFF A/B INTERP No C.diff present
--- NOTE | 2022-01-25 17:50 | NUR ---
PATIENT EXPRESSED WISH TO BE DNR/DNI. SHE WANTED TO DISCUSS IT WITH HER BEFORE CONFIRMING. ATTEMPTED TO CALL AND WAS NOT ABLE TO GET HIM ON THE PHONE. PATIENT IS STABLE, ALERT AND ORIENTED. PATIENT IS AWARE OF ATTEMPT TO REACH AND THAT HE DIDNT ANSWER.
--- NOTE | 2022-01-25 19:58 | NUR ---
BEDSIDE SHIFT REPORT RECEIVED FROM LUNA DUMONT. PT CURRENTLY RESTING IN BED. NO C/O PAIN OR DISCOMFORT AT THIS TIME. LINES RUNNING ACCORDING TO REPORT (SEE DRIP FLOW SHEET). MERCADO AND RECTAL TUBE IN PLACE AND DRAINING APPROPRIATELY. BIPAP RUNNING ACCORDING TO REPORT. VSS, NO ACUTE CHANGES NOTED AT THIS TIME.
[2022-01-26] VITALS (1176 sets, daily range): BP systolic 85–123; BP diastolic 55–81; PULSE 72–81; TEMP 98.1–98.6; O2SAT 69–100
[2022-01-26 04:27] LABS: ARTERIAL BLD GAS O2 SATURATION 94.8 % (92-100); ARTERIAL BLD GAS TCO2 CT 27.5; ARTERIAL BLOOD GAS BASE EXCESS 2.6 (-2-2); ARTERIAL BLOOD GAS HCO3 26.4 meq/L (22-26); ARTERIAL BLOOD GAS PCO2 37.4 mmHg (35-45); ARTERIAL BLOOD GAS PO2 69.9 mmHg (80-100); ARTERIAL BLOOD GAS pH 7.47 (7.35-7.45)
[2022-01-26 05:34] LABS: BASO % 0.1 % (0.0-2.0); GRAN % 89.5 % (42.2-75.2); HEMOGLOBIN 10.2 g/dl (12.5-16.0); LYMPH # 0.4 K/mm3 (1.2-3.4); LYMPH % 3.4 % (20.0-51.0); MEAN CELL VOLUME 88 fl (80.0-100.0); MEAN CORPUSCULAR HEMOGLOBIN 31 pg (27-31); MEAN CORPUSCULAR HGB CONC 35 g/dl (33.0-37.0); MEAN PLATELET VOLUME 10.3 fl (7.4-10.4); MONO # 0.8 K/mm3 (0.1-0.6); MONO % 6.3 % (1.7-9.3); PLATELET COUNT 161 K/mm3 (130-400); REDCELL DISTRIBUTION WIDTH-CV 13.2 % (11.5-14.5)
[2022-01-26 05:37] LABS: HEMATOCRIT 29.1 % (37.0-47.0)
[2022-01-26 05:59] LABS: CALCIUM 7.4 mg/dL (8.4-10.2); CREATININE, serum 0.54 mg/dL (0.57-1.11); MAGNESIUM 1.7 mg/dL (1.6-2.6); POTASSIUM 3.4 mmol/L (3.5-4.5)
--- NOTE | 2022-01-26 11:30 | NUR ---
PT placed on AIRVO 60 L 90%. PT is tolerating the airvo well, and was given water and an ensure drink. PT stated that she wants to be a DNR going further.
--- NOTE | 2022-01-26 15:02 | NUR ---
SW requested to fax referral documenation to [facility]. Documentation faxed. SW will continue to follow.
--- NOTE | 2022-01-26 15:26 | NUR ---
PT PLACED BACK ON BIPAP, PREVIOUS SETTINGS USED.
--- NOTE | 2022-01-26 22:15 | NUR ---
PT CURRENTLY RESTING IN BED. NO C/O PAIN OR DISCOMFORT. LINES RUNNING ACCORDING TO REPORT (SEE DRIP FLOW SHEET). MERCADO AND RECTAL TUBE DRAINING APPROPRIATELY. BIPAP APPROPRIATE ACCORDING TO REPORT. VSS, NO ACUTE CHANGES NOTED AT THIS TIME.
[2022-01-27] VITALS (804 sets, daily range): BP systolic 108–134; BP diastolic 66–87; PULSE 71–84; TEMP 97–97.9; O2SAT 63–100
[2022-01-27 05:36] LABS: HEMOGLOBIN 10.6 g/dl (12.5-16.0); MEAN CELL VOLUME 88 fl (80.0-100.0); MEAN CORPUSCULAR HEMOGLOBIN 31 pg (27-31); MEAN CORPUSCULAR HGB CONC 36 g/dl (33.0-37.0); MEAN PLATELET VOLUME 10.5 fl (7.4-10.4); PLATELET COUNT 129 K/mm3 (130-400); REDCELL DISTRIBUTION WIDTH-CV 13.4 % (11.5-14.5)
[2022-01-27 05:38] LABS: HEMATOCRIT 29.9 % (37.0-47.0)
[2022-01-27 05:51] LABS: CALCIUM 7.7 mg/dL (8.4-10.2); CREATININE, serum 0.51 mg/dL (0.57-1.11); POTASSIUM 4.2 mmol/L (3.5-4.5)
--- NOTE | 2022-01-27 10:28 | NUR ---
delinquency prevention social worker spoke with Obinna at [facility] who states that he has not gotten the referral. Per physicians, patient is ready for transfer and is agreeable to going to [facility] once a bed is available. Patients clinical information refaxed to Obinna
--- NOTE | 2022-01-27 10:35 | NUR ---
Obinna with [facility] states that they are able to accept this patient today and would like a 5pm crab picker time.
[2022-01-27] MEDS ORDERED: IPRATROPIUM BROM3 M1 IH ×2 (13:22)
[2022-01-27] MEDS ORDERED: PERFOROMIS20 MCG/2 M IH (13:23)
[2022-01-27] MEDS ORDERED: PROVENTIL0.09 MG/A1 IH (13:23)
[2022-01-27] MEDS ORDERED: SOLU-MEDRO40 MG/VIA1 IV (13:25)
[2022-01-27] MEDS ORDERED: PULMICORT0.5 MG/2 M IH (13:25)
[2022-01-27] MEDS ORDERED: LASIX 40MG40 MG/4 ML IV (13:25)
[2022-01-27] MEDS ORDERED: NATURE'S BLEND100 M2 PO (13:26)
[2022-01-27] MEDS ORDERED: DUO-KAPS1 CAP PO (13:26)
--- NOTE | 2022-01-27 18:39 | NUR ---
PT TRANSFERRED TO [facility] VIA EMS AT 1750. VSS, MERCADO AND RECTAL TUBE IN PLACE, TPN INFUSING AT 38ML/HR TO RIJ. REPORT CALLED TO EMILY AT [facility] AT 1830 AFTER 3 ATTEMPTS.
--- NOTE | 2022-01-28 15:42 | NUR ---
*(LATE ENTRY)*Patient's TPN formula and discharge orders faxed to Obinna at [facility]. [facility] contacted and arrangement made for the patient to be picked up at 1700. Due to the truck not being able to transfer the patient on Airvo, agreement made that she will transfer with her Bipap. Patient has been utilizing the Bipap during the night. JAN contacted the patient's Moises to bring the patient her clothers, cell phone and tablet. Moises verbalizes that he is currently in the ER for a GI bleed and it is unknown if he will be released home or admitted. JAN collaborated with Moises's RN to bring him to see his before she left for [facility]. Moises brought over for a short visit. States that their daughter lives in by [facility]. Facility address, nurses phone number and Obinna's phone number provided to Moises. Signed/completed EMS forms placed on the patient's chart.
== END 2022-01-27 17:50 | DRG 871 ==
LOC: COL.ER 21:56 → ICU 01-23 01:55
PROVIDERS: Emergency Medicine; Internal Medicine Pulmonary Disease; Nurse Practitioner Family; ADMIT Internal Medicine
PROC: 0W993ZX Drainage of Right Pleural Cavity, Percutaneous Approach, Diagnostic (ICD-10-PCS; principal; 2022-01-23)
PROC: 05HM33Z Insertion of Infusion Device into Right Internal Jugular Vein, Percutaneous Approach (ICD-10-PCS; 2022-01-23)
DX: A41.9 Sepsis, unspecified organism (principal); J96.01 Acute respiratory failure with hypoxia; R65.21 Severe sepsis with septic shock; R57.1 Hypovolemic shock; J18.1 Lobar pneumonia, unspecified organism; E87.2 Acidosis; E87.1 Hypo-osmolality and hyponatremia; Z66 Do not resuscitate; R18.8 Other ascites; J91.8 Pleural effusion in other conditions classified elsewhere; N39.0 Urinary tract infection, site not specified; G72.81 Critical illness myopathy; E87.3 Alkalosis; J44.9 Chronic obstructive pulmonary disease, unspecified; Z96.641 Presence of right artificial hip joint; Z20.822 Contact with and (suspected) exposure to COVID-19; E86.0 Dehydration; D64.9 Anemia, unspecified; F32.A Depression, unspecified; F41.9 Anxiety disorder, unspecified; M81.0 Age-related osteoporosis without current pathological fracture; E87.5 Hyperkalemia; F10.10 Alcohol abuse, uncomplicated; I10 Essential (primary) hypertension; E87.6 Hypokalemia; E83.42 Hypomagnesemia; E87.8 Other disorders of electrolyte and fluid balance, not elsewhere classified; E88.09 Other disorders of plasma-protein metabolism, not elsewhere classified; I95.9 Hypotension, unspecified; E87.70 Fluid overload, unspecified; I48.0 Paroxysmal atrial fibrillation; B96.1 Klebsiella pneumoniae [K. pneumoniae] as the cause of diseases classified elsewhere; Z87.891 Personal history of nicotine dependence; Z98.51 Tubal ligation status; Z91.048 Other nonmedicinal substance allergy status; Z88.2 Allergy status to sulfonamides; Z23 Encounter for immunization
CPT/HCPCS: 99239; J1815; J1940; J2060; J2543; J2920; J3370; J3411; J3475; J3480; J7030; J7050; J7060; J7120; J7131